=== PATIENT | female | born 1995 | race Caucasian/White ===

== ENCOUNTER 2017-08-22 05:32 | Emergency (ER) | payer OTHER ==
[2017-08-22 05:43] VITALS: BP 119/56; PULSE 75; TEMP 97.7; BMI 26.4
--- NOTE | 2017-08-22 05:57 | PDOC ---
History of Present Illness - General History Source: Patient Exam Limitations: No Limitations - History of Present Illness Initial Comments: 08/22/17 05:58 The patient is a 22 year old female with no significant PMH who presents to the emergency department with nausea and emesis x2 since 11PM yesterday. The patient states that she did not eat anything new. The patient denies sick contact. The patient denies chest pain, shortness of breath, headache and dizziness. Denies fever, chills, diarrhea and constipation. Denies dysuria, frequency, urgency and hematuria. Allergies: NKA Past surgical history: None reported Social history: No reported alcohol, cigarette, or drug use. <Hailey Garrison - Last Filed: 08/22/17 05:58> - General History Source: Patient <Hiram Mcguire - Last Filed: 08/22/17 06:55> - General Chief Complaint: Nausea/Vomiting Stated Complaint: VOMITING Time Seen by Provider: 08/22/17 05:49 Past History <Hailey Garrison - Last Filed: 08/22/17 05:58> - Past Medical History Asthma: Yes Cancer: No Cardiac Disorders: No Diabetes: No HTN: No Seizures: No Thyroid Disease: No - Surgical History Abdominal Surgery: No - Reproductive History (#): 3 Para: 1 Therapeutic (s) & number: Yes (elective) - Suicide/Smoking/Psychosocial Hx Smoking History: Never smoked Have you smoked in the past 12 months: No Number of Cigarettes Smoked Daily: 2 Information on smoking cessation initiated: No Hx Alcohol Use: No Drug/Substance Use Hx: No Substance Use Type: None Hx Substance Use Treatment: No <Hiram Mcguire - Last Filed: 08/22/17 06:55> - Past Medical History Allergies/Adverse Reactions: Allergies Allergy/AdvReac Type Severity Reaction Status Date / Time No Known Allergies Allergy Verified 08/22/17 05:41 Home Medications: Ambulatory Orders NK [No Known Home Medication] 10/23/15 Review of Systems - Review of Systems Able to Perform ROS?: Yes Comments:: 08/22/17 06:02 CONSTITUTIONAL: Absent: fever, no chills, no fatigue EYES: Absent: visual changes ENT: Absent: ear pain, no sore throat CARDIOVASCULAR: Absent: chest pain, no palpitations RESPIRATORY: Absent: cough, no SOB GI: Absent: abdominal pain, no constipation, no diarrhea Present: nausea and vomiting GENITOURINARY: Absent: dysuria, no frequency, no hematuria MUSKULOSKELETAL: Absent: back pain, no arthralgia, no myalgia SKIN: Absent: rash NEURO: Absent: headache <Hailey Garrison - Last Filed: 08/22/17 05:58> *Physical Exam - Vital Signs Last Vital Signs Temp Pulse Resp BP Pulse Ox 97.7 F 75 14 119/56 97 08/22/17 05:42 08/22/17 05:42 08/22/17 05:42 08/22/17 05:42 08/22/17 05:42 - Physical Exam Comments: 08/22/17 06:04 GENERAL: Well developed, well nourished. Awake and alert. No acute distress. HEENT: Normocephalic, atraumatic. PERRLA, EOMI. No conjunctival pallor. Sclera are non- icteric. Moist mucous membranes. Oropharynx is clear. NECK: Supple. Full ROM. No JVD. Carotid pulses 2+ and symmetric, without bruits. No thyromegaly. No lymphadenopathy. CARDIOVASCULAR: Regular rate and rhythm. No murmurs, rubs, or gallops. Distal pulses are 2+ and symmetric. PULMONARY: No evidence of respiratory distress. Lungs clear to auscultation bilaterally. No wheezing, rales or rhonchi. ABDOMINAL: Soft. Non-tender. Non-distended. No rebound or guarding. No organomegaly. Normoactive bowel sounds. MUSCULOSKELETAL Normal range of motion at all joints. No bony deformities or tenderness. No CVA tenderness. EXTREMITIES: No cyanosis. No clubbing. No edema. No calf tenderness. SKIN: Warm and dry. Normal capillary refill. No rashes. No jaundice. NEUROLOGICAL: Alert, awake, appropriate. Cranial nerves 2-12 intact. No deficits to light touch and temperature in face, upper extremities and lower extremities. No motor deficits in the in face, upper extremities and lower extremities. Normoreflexic in the upper and lower extremities. Normal speech. Toes are down- going bilaterally. Gait is normal without ataxia. PSYCHIATRIC: Cooperative. Good eye contact. Appropriate mood and affect. <Hailey Garrison - Last Filed: 08/22/17 05:58> - Vital Signs Last Vital Signs Temp Pulse Resp BP Pulse Ox 97.7 F 75 14 119/56 97 08/22/17 05:42 08/22/17 05:42 08/22/17 05:42 08/22/17 05:42 08/22/17 05:42 <Hiram Mcguire - Last Filed: 08/22/17 06:55> *DC/Admit/Observation/Transfer - Attestations Scribe Attestion: 08/22/17 06:06 Documentation prepared by Hailey Garrison, acting as medical consultant for Hiram Mcguire DO. <Hailey Garrison - Last Filed: 08/22/17 05:58> - Discharge Dispostion Admit: No <Hiram Mcguire - Last Filed: 08/22/17 06:55> Diagnosis at time of Disposition: Nausea - Discharge Dispostion Disposition: HOME Condition at time of disposition: Improved - Patient Instructions Printed Discharge Instructions: DI for Nausea -- Adult
[2017-08-22] MEDS ORDERED: ONDANSETRON *ODT* 4 MG TABLET SL ONE (06:02)
[2017-08-22 06:33] LABS: URINE APPEARANCE CLOUDY; URINE BILIRUBIN NEGATIVE (NEGATIVE); URINE BLOOD 1+ (NEGATIVE); URINE COLOR YELLOW; URINE GLUCOSE (UA) NEGATIVE (NEGATIVE); URINE KETONE NEGATIVE (NEGATIVE); URINE NITRITE NEGATIVE (NEGATIVE); URINE PROTEIN NEGATIVE (NEGATIVE); URINE UROBILINOGEN NEGATIVE mg/dL (0.2-1.0)
[2017-08-22 07:00] LABS: URINE MUCUS RARE; URINE RBC 5 /hpf (0-3); URINE WBC 15 /hpf (3-5)
[2017-08-22 12:17] LABS: URINE LEUK ESTERASE 2+ (NEGATIVE)
== END 2017-08-22 07:06 | disposition home or self-care (01) ==
LOC: JER 05:32
DX: R11.0 Nausea (principal); J45.909 Unspecified asthma, uncomplicated
CPT/HCPCS: 81003; 81015; 84703; 99282-25

== ENCOUNTER 2017-09-23 16:37 | Emergency (ER) | payer OTHER ==
[2017-09-23 16:58] VITALS: BP 117/55; PULSE 94; TEMP 98.6; BMI 26.4
[2017-09-23] MEDS ORDERED: DIPHTH,PERTUSS(ACELL),TET 0.5 ML DISP.SYRIN IM ONE (16:58)
--- NOTE | 2017-09-23 16:58 | PDOC ---
Rapid Medical Evaluation Time Seen by Provider: 09/23/17 16:56 Medical Evaluation: Allergies Allergy/AdvReac Type Severity Reaction Status Date / Time No Known Allergies Allergy Verified 09/23/17 16:56 09/23/17 16:57 I have performed a brief in-person evaluation of this patient. The patient presents with a chief complaint of: Abscess to R arm, no f/c. No pmhx Pertinent physical exam findings: 2x1 cm fluctuant mass w/ surrounding erythema to ulnar aspect of distal L arm I have ordered the following:nothing The patient will proceed to the ED for further evaluation.
--- NOTE | 2017-09-23 17:50 | PDOC ---
History of Present Illness - General Chief Complaint: Abscess Boil Stated Complaint: BITE Time Seen by Provider: 09/23/17 16:56 History Source: Patient Exam Limitations: No Limitations - History of Present Illness Initial Comments: 09/23/17 17:45 This is a 22-year-old female without significant past medical history of presents with abscess to her right forearm 3 days. Patient states started as a "bug bite" which is slowly progressed into a 5 x 6 cm erythema on the forearm. Patient denies any fevers, chills, shortness of breath, pain, streaking. Past History - Past Medical History Allergies/Adverse Reactions: Allergies Allergy/AdvReac Type Severity Reaction Status Date / Time No Known Allergies Allergy Verified 09/23/17 16:56 Home Medications: Ambulatory Orders Cephalexin Monohydrate [Keflex -] 500 mg PO BID #20 capsule 09/23/17 Asthma: Yes Cancer: No Cardiac Disorders: No COPD: No Diabetes: No HTN: No Seizures: No Thyroid Disease: No - Surgical History Abdominal Surgery: No - Reproductive History (#): 3 Para: 1 Therapeutic (s) & number: Yes (elective) - Suicide/Smoking/Psychosocial Hx Smoking History: Never smoked Have you smoked in the past 12 months: No Number of Cigarettes Smoked Daily: 2 Information on smoking cessation initiated: No Hx Alcohol Use: No Drug/Substance Use Hx: No Substance Use Type: None Hx Substance Use Treatment: No Review of Systems - Review of Systems Able to Perform ROS?: Yes Is the patient limited Bots[place]an proficient: No Constitutional: No: Symptoms Reported HEENTM: No: Symptoms Reported Respiratory: No: Symptoms reported Cardiac (ROS): No: Symptoms Reported ABD/GI: No: Symptoms Reported : No: Symptoms Reported Musculoskeletal: Yes: See HPI Integumentary: Yes: See HPI Neurological: No: Symptoms reported Endocrine: No: Symptoms Reported Hematologic/Lymphatic: No: Symptoms Reported *Physical Exam - Vital Signs Last Vital Signs Temp Pulse Resp BP Pulse Ox 98.6 F 94 H 18 117/55 100 09/23/17 16:57 09/23/17 16:57 09/23/17 16:57 09/23/17 16:57 09/23/17 16:57 - Physical Exam General Appearance: Yes: Appropriately Dressed. No: Apparent Distress HEENT: positive: Normal ENT Inspection Neck: positive: Trachea midline, Supple Respiratory/Chest: positive: Lungs Clear, Normal Breath Sounds. negative: Respiratory Distress Cardiovascular: positive: Regular Rhythm, Regular Rate Gastrointestinal/Abdominal: positive: Normal Bowel Sounds, Soft. negative: Tender Musculoskeletal: positive: Normal Inspection. negative: CVA Tenderness Extremity: positive: Other (5x6cm area of erythema present to ulnar aspect of right forearm. 3cm fluctuatnt area noted in the center. No drainage present.) Integumentary: positive: Other (5x6cm area of erythema present to ulnar aspect of right forearm. 3cm fluctuatnt area noted in the center. No drainage present.) Neurologic: positive: Fully Oriented, Alert, Normal Response, Motor Strength 5/5 Procedures - Consent Consent obtained: Verbal, From Patient - Incision and Drainage I&D Site: Right: Arm Betadine cleansed: Yes Anesthesia: 1% Lidocaine Volume(ml): 4 Blade Size: 11 Attempts: 1 Iodinated Packin/ in Plain Packing: No Complications: none Dressing: Yes (dry sterile) Progress: 09/23/17 18:07 Patient tolerated procedure well Medical Decision Making - Medical Decision Making 09/23/17 17:47 A/P: This is a 22-year-old female without significant past medical history of presents with abscess to her right forearm 3 days. Patient states started as a "bug bite" which is slowly progressed into a 5 x 6 cm erythema on the forearm. Patient denies any fevers, chills, shortness of breath, pain, streaking. 5 x 6 area of erythema noted to the ulnar aspect of the right forearm. There is a 3 cm circular area of fluctuance noted in the middle. The lesion itself is not draining. No streaking is present on forearm. Patient is able to flex and extend the wrist without difficulty. Diagnosis: Abscess I'll perform an I&D. Please see's procedure note for details. 09/23/17 18:07 Given area of cellulitis much larger than area of loculation, I will treat patient with antibiotics. *DC/Admit/Observation/Transfer Diagnosis at time of Disposition: Abscess - Discharge Dispostion Disposition: HOME Condition at time of disposition: Stable Admit: No - Prescriptions Prescriptions: Cephalexin Monohydrate [Keflex -] 500 mg PO BID #20 capsule - Referrals Referrals: Luiz Yeager [Primary Care Provider] - - Patient Instructions Printed Discharge Instructions: DI for Incision and Drainage of a Skin Abscess Additional Instructions: Take Keflex 500 mg twice a day for the next 10 days. Return to emergency department or your primary doctor in 2 days for reevaluation of the wound. Take Tylenol or Motrin as needed for pain. Follow manufacturers instructions for appropriate dosage. Return to emergency department for worsening pain, fevers, streaking up the arm , or any other concerns. Thank you very much for choosing us to provide your emergent healthcare needs. - Post Discharge Activity
[2017-09-23] MEDS ORDERED: IBUPROFEN 400 MG TABLET (FP) PO ONE ×2 (18:11)
--- NOTE | 2017-09-25 07:45 | PDOC ---
Patient Follow-up (Call Back) - Post ED Follow - Up Condition at time of discharge: Stable Disposition at time of original discharge: HOME Reason for Call Back: Abnwl. Microbiology (Culture Gram stain showed many gram- positive cocci in clusters. Patient was discharged home with Keflex. No further interventions presently wound culture pending.)
--- NOTE | 2017-09-26 07:48 | PDOC ---
Patient Follow-up (Call Back) - Post ED Follow - Up Condition at time of discharge: Stable Disposition at time of original discharge: HOME Reason for Call Back: Abnwl. Microbiology (Wound culture preliminary report shows presumptive MRSA. Patient was initially placed on Keflex which will not be adequate treatment for the above. Called the patient at the home number and grandmother states patient does not live there and does not know how to contact her. I've called the number listed for the mother and left a message. Message also left at the uncles number.)
== END 2017-09-23 18:40 | disposition home or self-care (01) ==
LOC: JERFT 16:37
PROC: 0J9G0ZZ Drainage of Right Lower Arm Subcutaneous Tissue and Fascia, Open Approach (ICD-10-PCS; principal; 2017-09-23)
DX: S50.861A Insect bite (nonvenomous) of right forearm, initial encounter (principal); L03.113 Cellulitis of right upper limb; W57.XXXA Bitten or stung by nonvenomous insect and other nonvenomous arthropods, initial encounter; Y93.89 Activity, other specified; Y92.89 Other specified places as the place of occurrence of the external cause; Y99.8 Other external cause status
CPT/HCPCS: 10160; 87070; 87186; 87205; 99282-25

== ENCOUNTER 2017-09-26 20:33 | Emergency (ER) | payer OTHER ==
--- NOTE | 2017-09-26 20:43 | PDOC ---
Rapid Medical Evaluation Time Seen by Provider: 09/26/17 20:42 Medical Evaluation: Allergies Allergy/AdvReac Type Severity Reaction Status Date / Time No Known Allergies Allergy Verified 09/26/17 20:42 09/26/17 20:42 I have performed a brief in -person evaluation of this patient. The patient presents with a chief complaint of: wound check after I&D right wrist Pt was prescribed Keflex which she did NOT take nor did she refill the mediation. Pertinent physical exam findings: afebrile I have ordered the followin The patient will proceed to the ED for further evaluation.
[2017-09-26 20:44] VITALS: BP 121/71; PULSE 93; TEMP 99; BMI 26.4
--- NOTE | 2017-09-26 20:54 | PDOC ---
History of Present Illness - General Chief Complaint: Revisit,Wound Recheck Stated Complaint: ER REVIST Time Seen by Provider: 09/26/17 20:42 History Source: Patient Exam Limitations: No Limitations - History of Present Illness Initial Comments: 09/26/17 21:30 22-year-old female with no medical history presents to the emergency department for wound check from an I&D of the right anterior ulnar aspect which she first noticed a small pimple-like raised to her wrist has increased in size. Patient had an I&D 3 days ago. Patient was discharged with Keflex states she did not pickle pumper her medication because she felt she didn't need it. Patient denies fever , chills, nausea/vomiting, extremity numbness or tingling sensation. Patient states she doesn't believe the infection is getting any better after is still copious discharge but deny any lymphangitis. Timing/Duration: reports: other (x3d ago) Past History - Past Medical History Allergies/Adverse Reactions: Allergies Allergy/AdvReac Type Severity Reaction Status Date / Time No Known Allergies Allergy Verified 09/26/17 20:42 Home Medications: Ambulatory Orders Cephalexin Monohydrate [Keflex -] 500 mg PO BID #20 capsule 09/23/17 Asthma: Yes Cancer: No Cardiac Disorders: No COPD: No Diabetes: No HTN: No Seizures: No Thyroid Disease: No - Surgical History Abdominal Surgery: No - Reproductive History (#): 3 Para: 1 Therapeutic (s) & number: Yes (elective) - Suicide/Smoking/Psychosocial Hx Smoking History: Never smoked Have you smoked in the past 12 months: No Number of Cigarettes Smoked Daily: 2 Hx Alcohol Use: No Drug/Substance Use Hx: No Substance Use Type: None Hx Substance Use Treatment: No Review of Systems - Review of Systems Able to Perform ROS?: Yes Comments:: 09/26/17 21:31 CONSTITUTIONAL: Absent: fever, chills, diaphoresis, generalized weakness, malaise, loss of appetite MUSCULOSKELETAL: Absent: myalgia, arthralgia, joint swelling SKIN: Right ant ulnar wrist/copious purulent draining Absent: rash, itching, pallor HEMATOLOGIC/IMMUNOLOGIC: Absent: easy bleeding, easy bruising, lymphadenopathy, frequent infections ENDOCRINE: Absent: unexplained weight gain, unexplained weight loss, heat intolerance, cold intolerance Is the patient limited Lao proficient: No *Physical Exam - Vital Signs Last Vital Signs Temp Pulse Resp BP Pulse Ox 99 F 93 H 18 121/71 99 09/26/17 20:42 09/26/17 20:42 09/26/17 20:42 09/26/17 20:42 09/26/17 20:42 - Physical Exam Comments: 09/26/17 21:31 GENERAL: Well developed, well nourished. Awake and alert. No acute distress. MUSCULOSKELETAL Normal range of motion at all joints. No bony deformities or tenderness. No CVA tenderness. EXTREMITIES: No cyanosis. No clubbing. No edema. No calf tenderness. SKIN: Warm and dry. Normal capillary refill. No rashes. No jaundice. Right ant ulnar wrist +copious purulent, malodorous drainage neg lymphangitis 2+radial pulse Progress Note - Progress Note Progress Note: Procedure: Right anterior ulnar/removed iodoform packing Copious irrigation with normal saline Repacked with 1/4" iodoform packing Telfa Gauze Kerlix wrap Patient was loud, belligerent and using profanity. Patient Leaving the hospital and returning. I've advised the patient to stay in the waiting room to get called to be seen but the patient keeps on leaving out of the hospital. Patient continued to be loud and belligerent in the exam room and continued to do so in the common waiting room. Patient asked to stop using profanity in front of children in the waiting room, patient persists and was screaming and yelling at the top of her lungs. Patient has been highly uncooperative this evening. Medical Decision Making - Medical Decision Making 09/27/17 02:45 This is a 22-year-old female without any medical history who presents for a wound check to the right anterior ulnar aspect of her wrists in which she had an I&D 3 days ago. Patient was prescribed Keflex which she did not pickle pumper from the pharmacy. Wound culture came back as MRSA. Patient was given clindamycin IV while in the emergency department. Packing removed. Due to copious amount of purulent discharge, she was repacked with quarter inch iodoform packing. Patient was informed to come back to the emergency department in 2 days for another wound check. *DC/Admit/Observation/Transfer Diagnosis at time of Disposition: Abscess, Wound check, abscess - Discharge Dispostion Disposition: ELOPED Condition at time of disposition: Stable Admit: No - Referrals Referrals: Whit Taylor MD [Non Staff, Medical] - - Patient Instructions Printed Discharge Instructions: DI for Wound Infection Additional Instructions: WOUND CHECK in 2 days SINCE YOU DID NOT TAKE YOUR ANTIBIOTICS. PER OUR CONVERSATION, THE INFECTION CAN GET WORSE. IT IS STRONGLY ADVISED THAT YOU TAKE THE CLINDAMYCIN Return to the ER for severe/persistent/worsening symptoms, red streaks - Post Discharge Activity
[2017-09-26] MEDS ORDERED: CLINDAMYCIN 600MG PREMIX IVPB 600 MG/50 ML BAG IVPB ONE (20:56)
== END 2017-09-27 02:25 | disposition left against medical advice (07) ==
LOC: JERFT 20:33
DX: Z48.01 Encounter for change or removal of surgical wound dressing (principal)
CPT/HCPCS: 96365; 99281-25

== ENCOUNTER 2017-09-30 00:08 | Emergency (ER) | payer OTHER ==
[2017-09-30 00:14] VITALS: BP 126/80; PULSE 100; TEMP 98.3; BMI 24.5
[2017-09-30] MEDS ORDERED: SULFAMETHOXAZOLE/TRIMETHOPRIM 800MG/160MG D.S. TABLET PO ONE (00:20)
--- NOTE | 2017-09-30 00:20 | PDOC ---
History of Present Illness - General Chief Complaint: Wound Stated Complaint: ABCESS TO RIGHT WRIST Time Seen by Provider: 09/30/17 00:16 History Source: Patient Exam Limitations: No Limitations - History of Present Illness Initial Comments: 09/30/17 00:22 This is a 22-year-old female who comes in for removal of packing from a wrist abscess that was incised is sized and drained patient is on Keflex at this time. Patient said wrist abscess is getting better she denies any other complaints. She denies any fevers or chills. PAST MEDICAL HISTORY: no significant history PAST SURGICAL HISTORY: no significant history FAMILY HISTORY: no pertinant history SOCIAL HISTORY: Pt lives with family and is employed. MEDICATIONS: reviewed ALLERGIES: As per nursing notes Review of Systems General: No fevers or chills, no weakness, no weight loss HEENT: No change in vision. No sore throat,. No ear pain CardioVascular: No chest pain or shortness of breath Respiratory:No cough, or wheezing. Gastrointestinal: no nausea, vomitting, diarrhea or constipation, No rectal bleeding Genitourinary: No dysuria, hematuria, or frequency Musculoskeletal: No joint or muscle pain or swelling Neurologic: No headache, vertigo, dizziness or loss of consciousness Psychiatric: nor depression Skin: No rashes or easy bruising Endocrine: no increased thirst or abnormal weight change Allergic: no skin or latex allergy All other systems reviewed and normal GENERAL: The patient is awake, alert, and fully oriented, in no acute distress. HEAD: Normal with no signs of trauma. EYES: Pupils equal, round and reactive to light, extraocular movements intact, sclera anicteric, conjunctiva clear. EXTREMITIES: Right wrist area there is a area of erythema with a cavity that has packing in it. There is no purulence from the cavity at this time. NEUROLOGICAL: Normal speech, normal gait. grossly intact PSYCH: Normal mood, normal affect. SKIN: Warm, Dry, normal turgor, no rashes or lesions noted. Procedure note packing was removed bacitracin was placed over the wound and a dressing was placed over that. Patient is on Keflex however this does not give her very good MRSA coverage so I switched her to Bactrim for better MRSA coverage as there is still some infection within the tissues Patient discharged told to start hot soaks and follow-up with the orthopedist if not improved Past History - Past Medical History Allergies/Adverse Reactions: Allergies Allergy/AdvReac Type Severity Reaction Status Date / Time No Known Allergies Allergy Verified 09/30/17 00:10 Home Medications: Ambulatory Orders Cephalexin Monohydrate [Keflex -] 500 mg PO BID #20 capsule 09/23/17 Asthma: Yes Cancer: No Cardiac Disorders: No COPD: No Diabetes: No HTN: No Seizures: No Thyroid Disease: No - Surgical History Abdominal Surgery: No - Reproductive History (#): 3 Para: 1 Therapeutic (s) & number: Yes (elective) - Immunization History Td Vaccination: Yes - Suicide/Smoking/Psychosocial Hx Smoking History: Never smoked Have you smoked in the past 12 months: No Number of Cigarettes Smoked Daily: 2 Information on smoking cessation initiated: No Hx Alcohol Use: No Drug/Substance Use Hx: No Substance Use Type: None Hx Substance Use Treatment: No *Physical Exam - Vital Signs Last Vital Signs Temp Pulse Resp BP Pulse Ox 98.3 F 100 H 16 126/80 99 09/30/17 00:11 09/30/17 00:11 09/30/17 00:11 09/30/17 00:11 09/30/17 00:11 *DC/Admit/Observation/Transfer Diagnosis at time of Disposition: Abscess of forearm, right, Wound check, abscess - Discharge Dispostion Disposition: HOME Condition at time of disposition: Stable Admit: No - Referrals - Patient Instructions Additional Instructions: I'm switching her antibiotics to Bactrim take one tablet twice a day for the next 7 days. Do hot soaks to the area 4 times a day until no longer red and healed. Place bacitracin over the wound and cover with a dressing until a scab has formed and there is no drainage. Follow-up with the orthopedist call [phone] for an appointment Return to the emergency department immediately with ANY new, persistent or worsening symptoms. Continue any medications as previously prescribed by your physician. You should follow up with your primary doctor as soon as possible regarding today's emergency department visit. . Please make sure your doctor reviews the results of your emergency evaluation. Thank you for coming to the Emergency Department today for your care. It was a pleasure to see you today. Please note that your evaluation is INCOMPLETE until you follow-up with your doctor. - Post Discharge Activity
[2017-09-30] MEDS ORDERED: SULFAMETHOXAZOLE/TRIMETHOPRIM 800MG/160MG D.S. TABLET ONE (00:21)
== END 2017-09-30 00:28 | disposition home or self-care (01) ==
LOC: FER 00:08
DX: L02.413 Cutaneous abscess of right upper limb (principal); J45.909 Unspecified asthma, uncomplicated
CPT/HCPCS: 99281-25

== ENCOUNTER 2017-10-29 18:32 | Emergency (ER) | payer OTHER ==
--- NOTE | 2017-10-29 18:41 | PDOC ---
Rapid Medical Evaluation Chief Complaint: Cold Symptoms Time Seen by Provider: 10/29/17 18:39 Medical Evaluation: Allergies Allergy/AdvReac Type Severity Reaction Status Date / Time No Known Allergies Allergy Verified 09/30/17 00:10 10/29/17 18:39 I have performed a brief in-person evaluation of this patient. The patient presents with a chief complaint of: body aches, cough since this morning, no meds taken Pertinent physical exam findings: lungs ctab I have ordered the following: flu swab The patient will proceed to the ED for further evaluation.
[2017-10-29 18:42] VITALS: BP 102/55; BMI 26.4
[2017-10-29 20:58] VITALS: TEMP 98.4
[2017-10-29 21:07] VITALS: PULSE 102
[2017-10-29] MEDS ORDERED: ACETAMINOPHEN 500 MG TABLET (FP) PO ONE (21:15)
[2017-10-29] MEDS ORDERED: ACETAMINOPHEN 500 MG TABLET (FP) ONE (21:16)
--- NOTE | 2017-10-29 21:21 | PDOC ---
History of Present Illness - General Chief Complaint: Cold Symptoms Stated Complaint: COLD SYMPTOMS Time Seen by Provider: 10/29/17 18:39 History Source: Patient Exam Limitations: No Limitations - History of Present Illness Initial Comments: 10/29/17 21:20 Patient came for evaluation of fevers, chills, body aches, moist nonproductive cough, since yesterday evening. Timing/Duration: reports: constant, getting worse Severity: reports: moderate Associated Symptoms: reports: chest pain/soreness, cough, dizziness, facial pain , fever/chills, headache, nasal drainage, sore throat Past History - Travel Traveled outside of the country in the last 30 days: No Close contact w/someone who was outside of country & ill: No - Past Medical History Allergies/Adverse Reactions: Allergies Allergy/AdvReac Type Severity Reaction Status Date / Time No Known Allergies Allergy Verified 10/29/17 18:41 Home Medications: Ambulatory Orders Ibuprofen 400 mg PO Q6H PRN #30 tablet 10/29/17 Oseltamivir Phosphate [Tamiflu -] 75 mg PO BID #10 capsule 10/29/17 Asthma: Yes Cancer: No Cardiac Disorders: No COPD: No Diabetes: No HTN: No Seizures: No Thyroid Disease: No - Surgical History Abdominal Surgery: No - Reproductive History (#): 3 Para: 1 Therapeutic (s) & number: Yes (elective) - Immunization History Td Vaccination: Yes - Suicide/Smoking/Psychosocial Hx Smoking History: Never smoked Have you smoked in the past 12 months: No Number of Cigarettes Smoked Daily: 2 Information on smoking cessation initiated: No Hx Alcohol Use: No Drug/Substance Use Hx: No Substance Use Type: None Hx Substance Use Treatment: No Review of Systems - Review of Systems Able to Perform ROS?: Yes Is the patient limited Mauritanian proficient: Yes Constitutional: Yes: Symptoms Reported, See HPI, Chills, Fever, Malaise, Night Sweats, Weakness HEENTM: Yes: Symptoms Reported, Nose Congestion, Throat Pain Respiratory: Yes: Symptoms reported, See HPI, Cough (nonproductive) ABD/GI: Yes: Symptoms Reported, Nausea. No: Vomiting All Other Systems: Reviewed and Negative *Physical Exam - Vital Signs Last Vital Signs Temp Pulse Resp BP Pulse Ox 98.4 F 102 H 18 102/55 97 10/29/17 20:57 10/29/17 21:06 10/29/17 18:40 10/29/17 18:40 10/29/17 18:40 - Physical Exam General Appearance: Yes: Nourished, Appropriately Dressed, Apparent Distress, Mild Distress HEENT: positive: MONAE, TMs Normal (congested but landmarks easily visualized), Pharyngeal Erythema, Nasal Congestion, Rhinorrhea. negative: Normal ENT Inspection, Pharynx Normal Respiratory/Chest: positive: Lungs Clear, Normal Breath Sounds. negative: Wheezing Cardiovascular: positive: Regular Rate Gastrointestinal/Abdominal: positive: Soft. 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 We'll treat with Tamiflu *DC/Admit/Observation/Transfer Diagnosis at time of Disposition: Influenzal acute upper respiratory infection - Discharge Dispostion Disposition: HOME Condition at time of disposition: Stable Admit: No - Prescriptions Prescriptions: Ibuprofen 400 mg PO Q6H PRN #30 tablet PRN Reason: Pain Oseltamivir Phosphate [Tamiflu -] 75 mg PO BID #10 capsule - Referrals Referrals: uLiz Yeager [Primary Care Provider] - - Patient Instructions Printed Discharge Instructions: DI for Influenza -- Adult Additional Instructions: Rest, drink lots of fluids: Teas, water, soups, Pedialyte Saltwater gargles Steamy showers/seem to face break up mucus Old-fashioned treatments help! Avoid contact with others until fevers and cough resolved as this is very contagious Lots of handwashing and good hygiene Continue [id number] medications for symptomatic relief Tylenol or Motrin for fever and pain Take all of Tamiflu as directed: 1 tab every 12 hours for 5 days Followup with private physician in one to 2 days as needed or if worsening Return to emergency department for worsened symptoms, fevers, dehydration Influenza takes between 5 and 7 days for resolution To not participate in any activity, work, or school until fevers and cough are gone for at least one day - Post Discharge Activity Forms/Work/School Notes: Back to Work
== END 2017-10-29 21:35 | disposition home or self-care (01) ==
LOC: JERFT 18:32
DX: J11.1 Influenza due to unidentified influenza virus with other respiratory manifestations (principal)
CPT/HCPCS: 84703; 99281-25

== ENCOUNTER 2018-08-22 02:52 | Emergency (ER) | payer OTHER ==
[2018-08-22 03:11] VITALS: TEMP 98.6; BMI 28.3
[2018-08-22] MEDS ORDERED: DIPHTH,PERTUSS(ACELL),TET 0.5 ML DISP.SYRIN IM ONE ×2 (03:31→03:55)
[2018-08-22] MEDS ORDERED: LIDOCAINE 1%/EPI 1:100000 (20 ML MULTI DOSE VIAL) INF ONE (03:31)
[2018-08-22] MEDS ORDERED: LIDOCAINE 1%/EPI 1:100000 (20 ML MULTI DOSE VIAL) ONE (03:55)
--- NOTE | 2018-08-22 03:59 | PDOC ---
History of Present Illness <Zaida Florian - Last Filed: 08/22/18 08:18> - General History Source: Patient Exam Limitations: No Limitations - History of Present Illness Initial Comments: 23 y/o F with no sig pmh presents as states she had some alcohol (3 cups of whiskey and juice) and around 2 hours ago, she fell back, hit the back of head against radiator. Denies LOC. Mentions she does not drink alcohol daily and only socially on weekends. Denies headache, neck pain, fever, sob, cp, dizziness , abd pain, n/v. Patient unsure of her last tetanus. 08/22/18 04:54 <Jazmin Marsh - Last Filed: 08/22/18 08:48> - General Chief Complaint: Injury Stated Complaint: INJURY Time Seen by Provider: 08/22/18 03:23 Past History <Zaida Florian - Last Filed: 08/22/18 08:18> - Past Medical History Asthma: Yes Cancer: No Cardiac Disorders: No COPD: No Diabetes: No HTN: No Seizures: No Thyroid Disease: No - Surgical History Abdominal Surgery: No - Reproductive History (#): 3 Para: 1 Therapeutic (s) & number: Yes (elective) - Immunization History Td Vaccination: Yes Immunization Up to Date: Yes - Suicide/Smoking/Psychosocial Hx Smoking History: Never smoked Have you smoked in the past 12 months: No Number of Cigarettes Smoked Daily: 2 Information on smoking cessation initiated: No Hx Alcohol Use: Yes Drug/Substance Use Hx: No Substance Use Type: Alcohol Hx Substance Use Treatment: No <Jazmin Marsh - Last Filed: 08/22/18 08:48> - Past Medical History Allergies/Adverse Reactions: Allergies Allergy/AdvReac Type Severity Reaction Status Date / Time No Known Allergies Allergy Verified 08/22/18 03:10 Home Medications: Ambulatory Orders Ibuprofen 400 mg PO Q6H PRN #30 tablet 10/29/17 Review of Systems - Review of Systems Comments:: see HPI 08/22/18 04:55 <Jazmin Marsh - Last Filed: 08/22/18 08:48> *Physical Exam - Vital Signs Last Vital Signs Temp Pulse Resp BP Pulse Ox 98.6 F 98 H 16 130/87 96 08/22/18 02:58 08/22/18 02:58 08/22/18 02:58 08/22/18 02:58 08/22/18 02:58 <Zaida Florian - Last Filed: 08/22/18 08:18> - Vital Signs Last Vital Signs Temp Pulse Resp BP Pulse Ox 98.6 F 98 H 16 130/87 96 08/22/18 02:58 08/22/18 02:58 08/22/18 02:58 08/22/18 02:58 08/22/18 02:58 - Physical Exam General Appearance: Yes: Alcohol on Breath. No: Apparent Distress, Disheveled HEENT: positive: MONAE, Other (around 5 cm scalp laceration to the left parietal region of head) Neck: positive: Supple. negative: Rigid, Decreased range of motion, Rigidity, Tender midline Respiratory/Chest: positive: Lungs Clear, Normal Breath Sounds. negative: Respiratory Distress Cardiovascular: positive: Regular Rhythm, Regular Rate, S1, S2. 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 NML intact, Fully Oriented, Alert, Normal Mood/ Affect <Jazmin Marsh - Last Filed: 08/22/18 08:48> Moderate Sedation - Procedure Monitoring Vital Signs: Procedure Monitoring Vital Signs Temperature 98.6 F 08/22/18 02:58 Pulse Rate 98 H 08/22/18 02:58 Respiratory Rate 16 08/22/18 02:58 Blood Pressure 130/87 08/22/18 02:58 O2 Sat by Pulse Oximetry (%) 96 08/22/18 02:58 <Zaida Florian - Last Filed: 08/22/18 08:18> - Procedure Monitoring Vital Signs: Procedure Monitoring Vital Signs Temperature 98.6 F 08/22/18 02:58 Pulse Rate 98 H 08/22/18 02:58 Respiratory Rate 16 08/22/18 02:58 Blood Pressure 130/87 08/22/18 02:58 O2 Sat by Pulse Oximetry (%) 96 08/22/18 02:58 <Jazmin Marsh - Last Filed: 08/22/18 08:48> Procedures - Laceration/Wound Repair Head Wound Length: 2.6 to 5.0 cm Wound Explored: clean, no foreign body present Wound's Depth, Shape: superficial Irrigated w/ Saline: Yes Betadine Prep: No Anesthesia: 1% Lidocaine w/ Epi Wound Debrided: moderate Wound Repaired With: Gerton (3 christopher placed) <Jazmin Marsh - Last Filed: 08/22/18 08:48> ED Treatment Course - ADDITIONAL ORDERS Additional order review: Laboratory Results 08/22/18 08/22/18 05:31 05:18 Urine HCG, Qual Negative Alcohol, Quantitative 39.3 H - Medications Given in the ED: ED Medications Discontinued Medications Generic Name Dose Route Start Last Admin Trade Name Caro PRN Reason Stop Dose Admin Acetaminophen 650 mg 08/22/18 04:50 08/22/18 05:16 Tylenol - PO 08/22/18 04:51 650 mg ONCE ONE Administration Diphtheria/Tetanus/Acell Pertussis 0.5 ml 08/22/18 03:31 08/22/18 03:58 Boostrix - IM 08/22/18 03:32 0.5 ml .ONCE ONE Administration Lidocaine/Epinephrine 3 ml 08/22/18 03:31 08/22/18 03:58 Xylocaine 1%-Epi 1:100,000 INF 08/22/18 03:32 3 ml ONCE ONE Administration <Zaida Florian - Last Filed: 08/22/18 08:18> Medical Decision Making - Medical Decision Making 23 y/o F presents with scalp laceration s/p fall after drinking alcohol. Laceration repaired with 3 christopher. Tdap updated Patient clinically appears sober Case d/w Dr. Floyd Will check alcohol level and get test Will also get CT head and CT cervical spine given fall after alcohol intoxication. Patient placed in C-collar 08/22/18 04:58 Patient alcohol level [address] imaging Will sign out to incoming YAMILET pending CT results 08/22/18 06:35 <Jazmin Marsh - Last Filed: 08/22/18 08:48> *DC/Admit/Observation/Transfer <Zaida Florian - Last Filed: 08/22/18 08:18> - Discharge Dispostion Decision to Admit order: No <Jazmin Marsh - Last Filed: 08/22/18 08:48> Diagnosis at time of Disposition: Scalp laceration Qualifiers: Encounter type: initial encounter Qualified Code(s): S01.01XA - Laceration without foreign body of scalp, initial encounter Alcohol intoxication Qualifiers: Complication of substance-induced condition: uncomplicated Qualified Code(s): F10.920 - Alcohol use, unspecified with intoxication, uncomplicated - Discharge Dispostion Disposition: HOME Condition at time of disposition: Good - Patient Instructions Printed Discharge Instructions: DI for Laceration Repair -- Gerton, DI for Laceration Repair of the Scalp, DI for Closed Head Injury Additional Instructions: Thank you for choosing [facility]. It was a pleasure taking care of you. You were seen here for scalp laceration. Please have your christopher removed in 7 days. Refrain from drinking heavy amounts of alcohol. Return to the Emergency Department if your symptoms worsen or persist, you have fever, heavy bleeding from site, pustular discharge, severe headache, vomiting or other concerning symptoms.
[2018-08-22] MEDS ORDERED: ACETAMINOPHEN 325 MG TABLET (FP) PO ONE (04:50)
[2018-08-22 08:20] VITALS: BP 103/55; PULSE 99
== END 2018-08-22 08:24 | disposition home or self-care (01) ==
LOC: JER 02:52
PROC: 0HQ0XZZ Repair Scalp Skin, External Approach (ICD-10-PCS; principal; 2018-08-22)
PROC: 3E0234Z Introduction of Serum, Toxoid and Vaccine into Muscle, Percutaneous Approach (ICD-10-PCS; 2018-08-22)
DX: S01.01XA Laceration without foreign body of scalp, initial encounter (principal); W01.198A Fall on same level from slipping, tripping and stumbling with subsequent striking against other object, initial encounter; Y93.89 Activity, other specified; Y92.89 Other specified places as the place of occurrence of the external cause; Y99.8 Other external cause status
CPT/HCPCS: 12002; 36415; 70450-TC; 72125-TC; 80307; 84703; 90471; 90715; 99282-25

== ENCOUNTER 2019-05-27 16:04 | Emergency (ER) | payer OTHER ==
--- NOTE | 2019-05-27 16:08 | PDOC ---
Rapid Medical Evaluation Medical Evaluation: Allergies Allergy/AdvReac Type Severity Reaction Status Date / Time No Known Allergies Allergy Verified 08/22/18 03:10 05/27/19 16:06 I have performed a brief in-person evaluation of this patient. The patient presents with a chief complaint of: with LMP "2 months ago" with abd cramping and vomiting Pertinent physical exam findings: deferred I have ordered the following: w/u The patient will proceed to the ED for further evaluation. Discharge Disposition - Diagnosis - Referrals - Patient Instructions - Post Discharge Activity
[2019-05-27 16:09] VITALS: BP 110/51; PULSE 81; TEMP 98.1; BMI 31.1
[2019-05-27] MEDS ORDERED: SODIUM CHLORIDE 1,000 ML IV STA ×2 (16:09→17:59)
[2019-05-27 17:21] LABS: BASO % 0.2 % (0-2.0); EOS % 2.7 % (0-4.5); HEMATOCRIT 41.5 % (32.4-45.2); HEMOGLOBIN 13.8 GM/dL (10.7-15.3); LYMPH % 26.5 % (8-40); MCH 29.7 pg (25.7-33.7); MCHC 33.3 g/dl (32.0-36.0); MEAN CELL VOLUME 89.2 fl (80-96); MEAN PLT VOLUME 8.9 fl (7.5-11.1); MONO % 10.5 % (3.8-10.2); NEUT % 60.1 % (42.8-82.8); PLATELET COUNT 240 K/MM3 (134-434); RBC 4.65 M/mm3 (3.60-5.2); RDW 13.5 % (11.6-15.6); WHITE BLOOD COUNT 8.7 K/mm3 (4.0-10.0)
[2019-05-27 17:40] LABS: ALBUMIN 3.7 g/dl (3.4-5.0); BILIRUBIN,TOTAL 0.4 mg/dL (0.2-1); BLOOD UREA NITROGEN 8.2 mg/dL (7-18); CALCIUM 9.1 mg/dL (8.5-10.1); CREATININE 0.6 mg/dL (0.55-1.3); POTASSIUM 3.7 mmol/L (3.5-5.1)
[2019-05-27] MEDS ORDERED: ACETAMINOPHEN 1000 MG/100 ML VIAL (NON FORMULARY) IVPB ONE (17:59)
[2019-05-27] MEDS ORDERED: METOCLOPRAMIDE HCL INJECTION 10 MG/2 ML VIAL IVPB ONE (17:59)
[2019-05-27 18:24] LABS: PH,URINE 5.5 (5.0-8.0); URINE APPEARANCE CLEAR; URINE BILIRUBIN NEGATIVE (NEGATIVE); URINE COLOR YELLOW; URINE GLUCOSE (UA) NEGATIVE (NEGATIVE); URINE KETONE NEGATIVE (NEGATIVE); URINE LEUK ESTERASE NEGATIVE (NEGATIVE); URINE NITRITE NEGATIVE (NEGATIVE); URINE PROTEIN NEGATIVE (NEGATIVE)
--- NOTE | 2019-05-27 19:35 | PDOC ---
History of Present Illness - General Chief Complaint: Nausea/Vomiting Stated Complaint: (UNKNOWN WKS)WEAKNESS Time Seen by Provider: 05/27/19 17:14 History Source: Patient Exam Limitations: No Limitations Past History - Travel Traveled outside of the country in the last 30 days: No Close contact w/someone who was outside of country & ill: No - Past Medical History Allergies/Adverse Reactions: Allergies Allergy/AdvReac Type Severity Reaction Status Date / Time No Known Allergies Allergy Verified 05/27/19 16:09 Home Medications: Ambulatory Orders Ibuprofen 400 mg PO Q6H PRN #30 tablet 10/29/17 Asthma: Yes Cancer: No Cardiac Disorders: No COPD: No Diabetes: No HTN: No Seizures: No Thyroid Disease: No - Surgical History Abdominal Surgery: No - Reproductive History Is Patient Now?: Yes (#): 3 Para: 1 Therapeutic (s) & number: Yes (elective) - Immunization History Td Vaccination: Yes Immunization Up to Date: Yes - Suicide/Smoking/Psychosocial Hx Smoking History: Never smoked Have you smoked in the past 12 months: No Number of Cigarettes Smoked Daily: 2 Information on smoking cessation initiated: No Hx Alcohol Use: No Drug/Substance Use Hx: No Substance Use Type: Alcohol Hx Substance Use Treatment: No Review of Systems - Review of Systems Able to Perform ROS?: Yes Comments:: 05/27/19 19:31 CONSTITUTIONAL: Absent: fever, chills, diaphoresis, generalized weakness, malaise, loss of appetite HEENT: Absent: rhinorrhea, nasal congestion, throat pain, throat swelling, difficulty swallowing, mouth swelling, ear pain, eye pain, visual Changes CARDIOVASCULAR: Absent: chest pain, loss of consciousness, palpitations, irregular heart rate, peripheral edema RESPIRATORY: Absent: cough, shortness of breath, dyspnea with exertion, orthopnea, wheezing, stridor, hemoptysis GASTROINTESTINAL: Present: abdominal pain, nausea, vomiting, diarrhea. Absent: constipation, melena, hematochezia GENITOURINARY: Absent: dysuria, frequency, urgency, hesitancy, hematuria, flank pain, genital pain MUSCULOSKELETAL: Absent: myalgia, arthralgia, joint swelling SKIN: Absent: rash, itching, pallor HEMATOLOGIC/IMMUNOLOGIC: Absent: easy bleeding, easy bruising, lymphadenopathy, frequent infections ENDOCRINE: Absent: unexplained weight gain, unexplained weight loss, heat intolerance, cold intolerance NEUROLOGIC: Absent: headache, focal weakness or paresthesias, dizziness, unsteady gait, seizure, mental status changes, bladder or bowel incontinence PSYCHIATRIC: Absent: anxiety, depression, suicidal or homicidal ideation, hallucinations. Is the patient limited Romansh proficient: No *Physical Exam - Vital Signs Last Vital Signs Temp Pulse Resp BP Pulse Ox 98.1 F 81 18 110/51 L 99 05/27/19 16:07 05/27/19 16:07 05/27/19 16:07 05/27/19 16:07 05/27/19 16:07 - Physical Exam Comments: 05/27/19 19:32 GENERAL: Well developed, well nourished. Awake and alert. No acute distress. HEENT: Normocephalic, atraumatic. PERRLA, EOMI. No conjunctival pallor. Sclera are non- icteric. Moist mucous membranes. Oropharynx is clear. NECK: Supple. Full ROM. No JVD. Carotid pulses 2+ and symmetric, without bruits. No thyromegaly. No lymphadenopathy. CARDIOVASCULAR: Regular rate and rhythm. No murmurs, rubs, or gallops. Distal pulses are 2+ and symmetric. PULMONARY: No evidence of respiratory distress. Lungs clear to auscultation bilaterally. No wheezing, rales or rhonchi. ABDOMINAL: Soft. Non-tender. Non-distended. No rebound or guarding. No organomegaly. Normoactive bowel sounds. MUSCULOSKELETAL Normal range of motion at all joints. No bony deformities or tenderness. No CVA tenderness. EXTREMITIES: No cyanosis. No clubbing. No edema. No calf tenderness. SKIN: Warm and dry. Normal capillary refill. No rashes. No jaundice. NEUROLOGICAL: Alert, awake, appropriate. Cranial nerves 2-12 intact. No deficits to light touch and temperature in face, upper extremities and lower extremities. No motor deficits in the in face, upper extremities and lower extremities. Normoreflexic in the upper and lower extremities. Normal speech. Toes are down- going bilaterally. Gait is normal without ataxia. PSYCHIATRIC: Cooperative. Good eye contact. Appropriate mood and affect. ED Treatment Course - LABORATORY CBC & Chemistry Diagram: 05/27/19 16:43 05/27/19 16:43 - ADDITIONAL ORDERS Additional order review: Laboratory Results 05/27/19 05/27/19 05/27/19 16:45 16:43 16:22 Sodium 138 Potassium 3.7 Chloride 106 Carbon Dioxide 26 Anion Gap 7 L BUN 8.2 Creatinine 0.6 Est GFR (CKD-EPI)AfAm 149.95 Est GFR (CKD-EPI)NonAf 129.38 Random Glucose 84 Calcium 9.1 Total Bilirubin 0.4 AST 21 ALT 34 Alkaline Phosphatase 77 Total Protein 7.0 Albumin 3.7 Beta HCG, Quant 02793.5 Urine Color Yellow Urine Appearance Clear Urine pH 5.5 D Ur Specific [place] 1.019 Urine Protein Negative Urine Glucose (UA) Negative Urine Ketones Negative Urine Blood Negative Urine Nitrite Negative Urine Bilirubin Negative Urine Urobilinogen 1.0 Ur Leukocyte Esterase Negative Blood Type Antibody Screen 05/27/19 16:22 Sodium Potassium Chloride Carbon Dioxide Anion Gap BUN Creatinine Est GFR (CKD-EPI)AfAm Est GFR (CKD-EPI)NonAf Random Glucose Calcium Total Bilirubin AST ALT Alkaline Phosphatase Total Protein Albumin Beta HCG, Quant Urine Color Urine Appearance Urine pH Ur Specific [place] Urine Protein Urine Glucose (UA) Urine Ketones Urine Blood Urine Nitrite Urine Bilirubin Urine Urobilinogen Ur Leukocyte Esterase Blood Type O POSITIVE Antibody Screen Negative 05/27/19 16:43 RBC 4.65 MCV 89.2 MCHC 33.3 RDW 13.5 MPV 8.9 Neutrophils % 60.1 Lymphocytes % 26.5 Monocytes % 10.5 H Eosinophils % 2.7 D Basophils % 0.2 - Medications Given in the ED: ED Medications Discontinued Medications Generic Name Dose Route Start Last Admin Trade Name Freq PRN Reason Stop Dose Admin Acetaminophen 1,000 mg 05/27/19 17:59 05/27/19 18:59 Ofirmev Injection - IVPB 05/27/19 18:00 1,000 mg ONCE ONE Administration Diphenhydramine HCl 12.5 mg 05/27/19 17:59 05/27/19 18:59 Benadryl Injection - IVPB 05/27/19 18:00 12.5 mg ONCE ONE Administration Sodium Chloride 1,000 mls @ 1,000 mls/hr 05/27/19 16:09 05/27/19 16:59 Normal Saline - IV 05/27/19 17:08 1,000 mls/hr ASDIR STA Administration Sodium Chloride 1,000 mls @ 1,000 mls/hr 05/27/19 17:59 05/27/19 18:59 Normal Saline - IV 05/27/19 18:58 1,000 mls/hr ASDIR STA Administration Metoclopramide HCl 10 mg 05/27/19 17:59 05/27/19 19:00 Reglan Injection - IVPB 05/27/19 18:00 10 mg ONCE ONE Administration *DC/Admit/Observation/Transfer Diagnosis at time of Disposition: Hyperemesis Qualifiers: Weeks of gestation: less than 8 weeks Qualified Code(s): Z3A.01 - Less than 8 weeks gestation of - Discharge Dispostion Disposition: HOME Condition at time of disposition: Stable Decision to Admit order: No - Referrals Referrals: Iggy Mustafa MD [Staff Physician] - - Patient Instructions Printed Discharge Instructions: DI for Hyperemesis Gravidarum Additional Instructions: You were evaluated for your nausea and vomiting today You are currently 6 weeks as noted in your ultrasound Take the reglan every 8 hours as needed for nausea and vomiting Drink plenty of fluids and eat a bland diet until your symptoms have resolved. 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
== END 2019-05-27 19:44 | disposition home or self-care (01) ==
LOC: JER 16:04
PROC: 3E0337Z Introduction of Electrolytic and Water Balance Substance into Peripheral Vein, Percutaneous Approach (ICD-10-PCS; principal; 2019-05-27)
PROC: 3E033NZ Introduction of Analgesics, Hypnotics, Sedatives into Peripheral Vein, Percutaneous Approach (ICD-10-PCS; 2019-05-27)
PROC: 3E033GC Introduction of Other Therapeutic Substance into Peripheral Vein, Percutaneous Approach (ICD-10-PCS; 2019-05-27)
PROC: 3E033GC Introduction of Other Therapeutic Substance into Peripheral Vein, Percutaneous Approach (ICD-10-PCS; 2019-05-27)
DX: O26.891 Other specified pregnancy related conditions, first trimester (principal); O21.0 Mild hyperemesis gravidarum; Z3A.01 Less than 8 weeks gestation of pregnancy
CPT/HCPCS: 36415; 76817-TC; 80053; 81003; 84702; 85025; 86850; 86900; 86901; 87086; 99283-25; J0131; J7030

== ENCOUNTER 2019-07-10 19:04 | Emergency (ER) | payer OTHER ==
[2019-07-10 19:23] VITALS: BP 114/67; PULSE 99; TEMP 98.6; BMI 25.4
--- NOTE | 2019-07-10 19:42 | PDOC ---
History of Present Illness - General Chief Complaint: Cold Symptoms Stated Complaint: COLD SYMPTOMS Time Seen by Provider: 07/10/19 19:40 - History of Present Illness Initial Comments: 07/10/19 19:42 CHIEF COMPLAINT: cough HISTORY OF PRESENT ILLNESS: 23 yo F with hx of asthma presents to [facility] with cold symptoms x 4 days. Patient reports persistent dry cough and rhinorrhea for the past 4 days. Patient endorses chills but denies any fever, vomiting, diarrhea. No recent travel or sick contacts. PAST MEDICAL HISTORY: Denies past medical history FAMILY HISTORY: Denies SOCIAL HISTORY: Denies tobacco, alcohol, illicit drug use. SURGICAL HISTORY: Denies ALLERGIES: No known drug allergies REVIEW OF SYSTEMS General/Constitutional: Chills. Denies fever. Denies weakness, weight change. HEENT: Denies change in vision. Denies ear pain or discharge. Denies sore throat. Cardiovascular: Denies chest pain or shortness of breath. Respiratory: Cough x 4 days. Denies wheezing, hemoptysis. Gastrointestinal: Denies nausea, vomiting, diarrhea or constipation. Denies rectal bleeding. Genitourinary: Denies dysuria, frequency, or change in urination. Musculoskeletal: Denies joint or muscle swelling or pain. Denies neck or back pain. Skin and breasts: Denies rash or easy bruising. Neurologic: Denies headache, vertigo, loss of consciousness, or loss of sensation. Psychiatric: Denies depression or anxiety. PHYSICAL EXAM General Appearance: Well-appearing, appropriately dressed. No apparent distress , no intoxication. HEENT: Rhinorrhea, congestion, swollen turbinates. EOMI, PERRLA, normal voice, TMs normal, pharynx normal. No conjunctival pallor. No photophobia, scleral icterus. Neck: Supple. Trachea midline. No tenderness, rigidity, carotid bruit, stridor , lymphadenopathy, or thyromegaly. Respiratory/Chest: Lungs CTAB. No shortness of breath, chest tenderness, respiratory distress, accessory muscle use. No crackles, rales, rhonchi, stridor , wheezing, dullness Cardiovascular: RRR. S1, S2. No JVD, murmur, bradycardia, tachycardia. Vascular Pulses: Dorsalis-Pedis (R): 2+, Dorsalis-Pedis (L): 2+ Gastrointestinal/Abdominal: Normal bowel sounds. Abdomen soft, non-distended. No tenderness or rebound tenderness. No organomegaly, pulsatile mass, guarding , hernia, hepatomegaly, splenomegaly. Lymphatic: No adenopathy, tenderness. Musculoskeletal/Extremities: Normal inspection. FROM of all extremities, normal capillary refill. Pelvis Stable. No CVA tenderness. No tenderness to extremities, pedal edema, swelling, erythema or deformity. Integumentary: Appropriate color, dry, warm. 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 Fully oriented, alert. Appropriate mood/affect. Motor strength 5/5. No appreciable EOM palsy, facial droop or sensory deficit. 07/10/19 19:49 Past History - Past Medical History Allergies/Adverse Reactions: Allergies Allergy/AdvReac Type Severity Reaction Status Date / Time No Known Allergies Allergy Verified 05/27/19 16:09 Home Medications: Ambulatory Orders Ibuprofen 400 mg PO Q6H PRN #30 tablet 10/29/17 Metoclopramide HCl [Reglan -] 10 mg PO TID #21 tablet 05/27/19 Albuterol Sulfate Inhaler - [Ventolin HFA Inhaler -] 1 - 2 inh PO Q4H #1 inhaler 07/10/19 Benzonatate [Tessalon Pearls -] 100 mg PO TID #21 capsule 07/10/19 Pseudoephedrine HCl [Pseudoephedrine ER] 120 mg PO BID #20 tablet.er 07/10/19 Asthma: Yes Cancer: No Cardiac Disorders: No COPD: No Diabetes: No HTN: No Seizures: No Thyroid Disease: No - Surgical History Abdominal Surgery: No - Reproductive History (#): 3 Para: 1 Therapeutic (s) & number: Yes (elective) - Immunization History Td Vaccination: Yes Immunization Up to Date: Yes - Psycho Social/Smoking Cessation Hx Smoking History: Never smoked Have you smoked in the past 12 months: No Number of Cigarettes Smoked Daily: 2 Hx Alcohol Use: No Drug/Substance Use Hx: No Substance Use Type: Alcohol Hx Substance Use Treatment: No *Physical Exam - Vital Signs Last Vital Signs Temp Pulse Resp BP Pulse Ox 98.6 F 99 H 20 114/67 100 07/10/19 19:19 07/10/19 19:19 07/10/19 19:19 07/10/19 19:19 10/19/19 19:19 Medical Decision Making - Medical Decision Making 07/10/19 19:54 23 yo F with hx of asthma presents to [facility] with cold symptoms x 4 days. Clinical presentation consistent with viral URI. Will treat symptomatically. Advised patient to take medication as prescribed and follow up with PCP if symptoms persist past 4-5 days. Advised patient of signs and symptoms for return to ED. Patient verbalized understanding and agrees to plan. Discharge - Discharge Information Problems reviewed: Yes Clinical Impression/Diagnosis: Viral upper respiratory illness Condition: Stable Disposition: HOME - Admission No - Additional Discharge Information Prescriptions: Albuterol Sulfate Inhaler - [Ventolin HFA Inhaler -] 1 - 2 inh PO Q4H #1 inhaler Benzonatate [Tessalon Pearls -] 100 mg PO TID #21 capsule Pseudoephedrine HCl [Pseudoephedrine ER] 120 mg PO BID #20 tablet.er - Follow up/Referral Referrals: Luiz Yeager [Primary Care Provider] - - Patient Discharge Instructions Patient Printed Discharge Instructions: DI for Viral Upper Respiratory Infection -- Adult - Post Discharge Activity
== END 2019-07-10 20:13 | disposition home or self-care (01) ==
LOC: JERFT 19:04
DX: J06.9 Acute upper respiratory infection, unspecified (principal); B97.89 Other viral agents as the cause of diseases classified elsewhere; J45.909 Unspecified asthma, uncomplicated
CPT/HCPCS: 99281-25

== ENCOUNTER 2019-09-20 15:09 | Emergency (ER) | payer OTHER ==
[2019-09-20 15:16] VITALS: BP 138/80; PULSE 90; TEMP 98.3; BMI 29.5
[2019-09-20] MEDS ORDERED: ACETAMINOPHEN 500 MG TABLET (FP) PO ONE (15:17)
--- NOTE | 2019-09-20 15:17 | PDOC ---
Rapid Medical Evaluation Time Seen by Provider: 09/20/19 15:12 Medical Evaluation: Allergies Allergy/AdvReac Type Severity Reaction Status Date / Time No Known Allergies Allergy Verified 05/27/19 16:09 09/20/19 15:12 CC: b/l wrist pain x1 month. also with SOB while trying to sleep. 6 wks . LMP-08/10. 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 PE: Lungs CTAB. No focal findings to wrists. Orders: influenza testing Patient will proceed to ED for further evaluation. Discharge Disposition - Diagnosis Wrist pain - Referrals - Patient Instructions - Post Discharge Activity
[2019-09-20] MEDS ORDERED: ACETAMINOPHEN 325 MG TABLET (FP) ONE (16:05)
--- NOTE | 2019-09-20 16:32 | PDOC ---
History of Present Illness - General Chief Complaint: Pain Stated Complaint: PAIN Time Seen by Provider: 09/20/19 15:12 History Source: Patient Exam Limitations: No Limitations - History of Present Illness Initial Comments: 09/20/19 17:28 24-year-old 8 weeks female presents to ED for complaints of intermittent shortness of breath while at rest but denies any shortness of breath on exertion, lower extremity edema, fever, chills, headache, cough abdominal Pain, vaginal bleeding, or vaginal discharge. Is this a multiple visit Asthma Patient?: No Timing/Duration: other (1 week) Severity: mild Associated Symptoms: reports: shortness of breath Past History - Travel Traveled outside of the country in the last 30 days: No Close contact w/someone who was outside of country & ill: No - Past Medical History Allergies/Adverse Reactions: Allergies Allergy/AdvReac Type Severity Reaction Status Date / Time No Known Allergies Allergy Verified 09/20/19 15:17 Home Medications: Ambulatory Orders NK [No Known Home Medication] 09/20/19 Asthma: Yes Cancer: No Cardiac Disorders: No COPD: No Diabetes: No HTN: No Seizures: No Thyroid Disease: No - Surgical History Abdominal Surgery: No - Reproductive History (#): 3 Para: 1 Therapeutic (s) & number: Yes (elective) - Immunization History Td Vaccination: Yes Immunization Up to Date: Yes - Psycho Social/Smoking Cessation Hx Smoking History: Never smoked Have you smoked in the past 12 months: No Number of Cigarettes Smoked Daily: 2 Hx Alcohol Use: No Drug/Substance Use Hx: No Substance Use Type: Alcohol Hx Substance Use Treatment: No Patient Lives Alone: No Lives with/in: parents Review of Systems - Review of Systems Able to Perform ROS?: No Is the patient limited Malawian proficient: No Constitutional: No: Symptoms Reported HEENTM: No: Symptoms Reported Respiratory: Yes: SOB at Rest. No: Cough, Orthopnea Cardiac (ROS): No: Symptoms Reported ABD/GI: No: Symptoms Reported : No: Symptoms Reported Musculoskeletal: No: Symptoms Reported Integumentary: No: Symptoms Reported Neurological: No: Symptoms reported Endocrine: No: Symptoms Reported Hematologic/Lymphatic: No: Symptoms Reported *Physical Exam - Vital Signs Last Vital Signs Temp Pulse Resp BP Pulse Ox 98.3 F 90 18 138/80 99 09/20/19 15:11 09/20/19 15:11 12/30/19 15:11 09/20/19 15:11 09/20/19 15:11 - Physical Exam General Appearance: Yes: Nourished, Appropriately Dressed. No: Apparent Distress HEENT: negative: Pale Conjunctivae Neck: positive: Normal Thyroid, Supple Respiratory/Chest: positive: Lungs Clear, Normal Breath Sounds. negative: Respiratory Distress, Accessory Muscle Use Cardiovascular: positive: Regular Rhythm, Regular Rate. negative: Murmur Gastrointestinal/Abdominal: positive: Soft. negative: Tenderness Musculoskeletal: negative: CVA Tenderness Extremity: positive: Normal Inspection Integumentary: positive: Normal Color, Warm, Moist Neurologic: positive: Normal Mood/Affect, Motor Strength 01/24 ED Treatment Course - LABORATORY CBC & Chemistry Diagram: 09/20/19 16:30 - Medications Given in the ED: ED Medications Discontinued Medications Generic Name Dose Route Start Last Admin Trade Name Freq PRN Reason Stop Dose Admin Acetaminophen 1,000 mg 09/20/19 15:17 09/20/19 16:17 Tylenol - PO 09/20/19 15:18 1,000 mg ONCE ONE Administration Medical Decision Making - Medical Decision Making 09/20/19 17:06 Chief complaint: Shortness of breath at rest denies any other complaints patient currently 8 weeks . Exam: No abdominal tenderness lungs clear auscultation vital signs stable Plan: D-dimer, CBC 09/20/19 18:20 Laboratory Tests 09/20/19 09/20/19 09/20/19 16:10 16:30 16:38 WBC 8.7 Hgb 13.9 Hct 42.2 Absolute Neuts (auto) 4.9 D-Dimer < 215 Influenza A (Rapid) Pending Influenza B (Rapid) Negative Patient has been asymptomatic upon arrival. Patient wants to go home. Patient discharged home to follow-up with her COMMUNITY DEVELOPMENT PLANNER this Friday for ultrasound Discharge - Discharge Information Problems reviewed: Yes Clinical Impression/Diagnosis: Wrist pain, Shortness of breath at rest Condition: Good Disposition: HOME - Follow up/Referral Referrals: Luiz Yeager [Primary Care Provider] - - Patient Discharge Instructions Patient Printed Discharge Instructions: Managing Symptoms of Additional Instructions: Please follow-up with your COMMUNITY DEVELOPMENT PLANNER in regards to your ultrasound scheduled for this Friday. Drink plenty of fluids. Return to ED if symptoms worsen. - Post Discharge Activity
[2019-09-20 16:55] LABS: BASO % 0.7 % (0-2.0); EOS % 4.9 % (0-4.5); HEMATOCRIT 42.2 % (32.4-45.2); HEMOGLOBIN 13.9 GM/dL (10.7-15.3); LYMPH % 30.3 % (8-40); MCH 29.1 pg (25.7-33.7); MCHC 32.9 g/dl (32.0-36.0); MEAN CELL VOLUME 88.4 fl (80-96); MEAN PLT VOLUME 8.8 fl (7.5-11.1); MONO % 7.5 % (3.8-10.2); NEUT % 56.6 % (42.8-82.8); PLATELET COUNT 280 K/MM3 (134-434); RBC 4.78 M/mm3 (3.60-5.2); RDW 13.4 % (11.6-15.6); WHITE BLOOD COUNT 8.7 K/mm3 (4.0-10.0)
== END 2019-09-20 17:30 | disposition home or self-care (01) ==
LOC: JERFT 15:09 → JER 15:09
DX: O99.89 Other specified diseases and conditions complicating pregnancy, childbirth and the puerperium (principal); R06.02 Shortness of breath; M25.532 Pain in left wrist; M25.531 Pain in right wrist; Z3A.08 8 weeks gestation of pregnancy
CPT/HCPCS: 36415; 85025; 85379; 87804; 99283-25

== ENCOUNTER 2019-10-01 20:09 | Emergency (ER) | payer OTHER ==
[2019-10-01 20:13] VITALS: BP 120/79; PULSE 81; TEMP 99.1; BMI 29.5
--- NOTE | 2019-10-01 20:13 | PDOC ---
Rapid Medical Evaluation Chief Complaint: Toothache Time Seen by Provider: 10/01/19 20:11 Medical Evaluation: Allergies Allergy/AdvReac Type Severity Reaction Status Date / Time No Known Allergies Allergy Verified 09/20/19 15:17 10/01/19 20:11 HPI: toothache and fever x1 day 8 weeks gravid Tylenol 2 hours ago PE: No facial swelling ORDERS: Nothing 10/01/19 20:12 10/01/19 20:12 Discharge Disposition - Diagnosis Toothache - Referrals - Patient Instructions - Post Discharge Activity
--- NOTE | 2019-10-01 22:16 | PDOC ---
History of Present Illness - General Chief Complaint: Toothache Stated Complaint: TOOTHACHE Time Seen by Provider: 10/01/19 20:11 History Source: Patient - History of Present Illness Initial Comments: 10/01/19 22:33 Chief complaint: Toothache Patient 24-year-old female, who states she is 8 weeks with tooth ache for 1 day. No fever no difficulty swallowing. Patient took Tylenol prior to coming to ER. GENERAL/CONSTITUTIONAL: No fever, weakness. dizziness HEAD, EYES, EARS, NOSE AND THROAT: No change in vision. No ear pain or discharge. No sore throat. + Toothache CARDIOVASCULAR: No chest pain RESPIRATORY: No shortness of breath or cough GASTROINTESTINAL: No pain, nausea, vomiting, diarrhea or constipation GENITOURINARY: No dysuria MUSCULOSKELETAL: No neck or back pain SKIN: No rash NEUROLOGIC: No headache, vertigo, loss of consciousness, or loss of sensation. GENERAL: The patient is awake, alert, and fully oriented, in no acute distress. HEAD: Normal with no signs of trauma. EYES: Pupils equal, round and reactive to light, sclera anicteric, conjunctiva clear. ENT: pharynx: no erythema, no exudate, uvula midline. Multiple areas of dental fillings, dental fillings to the area of question in the left upper rear teeth with + tenderness, no gross swelling, no neck swelling, speech normal NECK: supple CHEST: clear, nontender, rr EXTREMITIES: Normal range of motion, no edema. NEUROLOGICAL: Normal speech, normal gait. SKIN: Warm, Dry Past History - Past Medical History Allergies/Adverse Reactions: Allergies Allergy/AdvReac Type Severity Reaction Status Date / Time No Known Allergies Allergy Verified 10/01/19 20:13 Home Medications: Ambulatory Orders Amoxicillin 875 mg PO BID #14 tablet 10/01/19 Asthma: Yes Cancer: No Cardiac Disorders: No COPD: No Diabetes: No HTN: No Seizures: No Thyroid Disease: No - Surgical History Abdominal Surgery: No - Reproductive History (#): 3 Para: 1 Therapeutic (s) & number: Yes (elective) - Immunization History Td Vaccination: Yes Immunization Up to Date: Yes - Psycho Social/Smoking Cessation Hx Smoking History: Never smoked Have you smoked in the past 12 months: No Number of Cigarettes Smoked Daily: 2 Hx Alcohol Use: No Drug/Substance Use Hx: No Substance Use Type: Alcohol Hx Substance Use Treatment: No *Physical Exam - Vital Signs Last Vital Signs Temp Pulse Resp BP Pulse Ox 99.1 F 81 18 120/79 99 10/01/19 20:11 10/01/19 20:11 10/01/19 20:11 10/01/19 20:11 10/01/19 20:11 Medical Decision Making - Medical Decision Making 10/01/19 22:35 Healthy 24-year-old female who is 8 weeks with 1 day of toothache. Patient took Tylenol prior to coming to ER. Tooth in question has a filling in it. Patient will be given amoxicillin. Explained to patient and partner why she cannot get stronger pain medicines. Printed her out information from online regarding pain management in and home remedies. Patient has not tried to see a dentist. She has a dentist that she can see. Discussed issues, findings, results, applicable medications and treatments and follow-up. All these were understood and all questions were answered Discharge - Discharge Information Problems reviewed: Yes Clinical Impression/Diagnosis: Toothache Condition: Stable Disposition: HOME - Additional Discharge Information Prescriptions: Amoxicillin 875 mg PO BID #14 tablet - Follow up/Referral Referrals: Luiz Yeager [Primary Care Provider] - - Patient Discharge Instructions Patient Printed Discharge Instructions: DI for Dental Pain Additional Instructions: You can continue to take Tylenol regular strength 2 tablets every 4 hours or extra strength 2 tablets every 6 hours. Do not take more than 4000 mg in 24 hours as this is harmful for your liver. You can follow the sheet on the home remedies or feel free to investigate other remedies yourself by doing a search online. Take the amoxicillin as directed Follow-up with dentist on Friday - Post Discharge Activity
== END 2019-10-01 22:20 | disposition home or self-care (01) ==
LOC: JERFT 20:09
DX: O99.89 Other specified diseases and conditions complicating pregnancy, childbirth and the puerperium (principal); K08.89 Other specified disorders of teeth and supporting structures; Z3A.08 8 weeks gestation of pregnancy
CPT/HCPCS: 99281-25

== ENCOUNTER 2019-10-20 19:34 | Emergency (ER) | payer OTHER ==
--- NOTE | 2019-10-20 19:48 | PDOC ---
Rapid Medical Evaluation Chief Complaint: Nausea/Vomiting Time Seen by Provider: 10/20/19 19:44 Medical Evaluation: Allergies Allergy/AdvReac Type Severity Reaction Status Date / Time No Known Allergies Allergy Verified 10/01/19 20:13 10/20/19 19:46 CC: n/v x1 day. 11wks . 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 PE: No focal findings Orders: urine, labs, NS Patient will proceed to ER for further evaluation. Discharge Disposition - Diagnosis Nausea & vomiting - Referrals - Patient Instructions - Post Discharge Activity
[2019-10-20] MEDS ORDERED: SODIUM CHLORIDE 1,000 ML IV STA ×2 (19:49→22:30)
[2019-10-20] MEDS ORDERED: ONDANSETRON 4 MG/2 ML VIAL IVPUSH ONE (19:49)
[2019-10-20 19:50] VITALS: BP 110/59; PULSE 88; TEMP 97.6; BMI 29.5
[2019-10-20 21:12] LABS: BASO % 0.3 % (0-2.0); EOS % 1.5 % (0-4.5); HEMATOCRIT 41.9 % (32.4-45.2); HEMOGLOBIN 13.9 GM/dL (10.7-15.3); LYMPH % 23.6 % (8-40); MCH 29.4 pg (25.7-33.7); MCHC 33.1 g/dl (32.0-36.0); MEAN CELL VOLUME 88.8 fl (80-96); MONO % 6.6 % (3.8-10.2); PLATELET COUNT 278 K/MM3 (134-434); RBC 4.72 M/mm3 (3.60-5.2); RDW 13.8 % (11.6-15.6)
[2019-10-20 21:14] LABS: PH,URINE 6.5 (5.0-8.0); URINE APPEARANCE CLEAR; URINE BILIRUBIN NEGATIVE (NEGATIVE); URINE COLOR YELLOW; URINE GLUCOSE (UA) NEGATIVE (NEGATIVE); URINE KETONE NEGATIVE (NEGATIVE); URINE LEUK ESTERASE NEGATIVE (NEGATIVE); URINE NITRITE NEGATIVE (NEGATIVE); URINE PROTEIN NEGATIVE (NEGATIVE)
[2019-10-20 21:26] LABS: ALBUMIN 3.8 g/dl (3.4-5.0); BILIRUBIN,TOTAL 0.4 mg/dL (0.2-1); BLOOD UREA NITROGEN 8.4 mg/dL (7-18); CALCIUM 9.5 mg/dL (8.5-10.1); CREATININE 0.6 mg/dL (0.55-1.3); POTASSIUM 3.8 mmol/L (3.5-5.1); TOT PROT 7.4 g/dl (6.4-8.2)
--- NOTE | 2019-10-20 22:13 | PDOC ---
Attending Attestation - Resident Resident Name: Aiyana Mckinney - ED Attending Attestation I have performed the following: I have examined & evaluated the patient, The case was reviewed & discussed with the resident, I agree w/resident's findings & plan - HPI HPI: 10/21/19 00:46 see resident hpi - Physicial Exam PE: 10/21/19 00:47 see resident exam - Medical Decision Making 10/21/19 00:47 24-year-old female, approximately 11 weeks gestational age complaining of epigastric pain and vomiting Labs were unremarkable Ultrasound the right upper quadrant as well as pelvis reviewed Patient feeling better, she has tolerated p.o. in the emergency department and is requesting IV to be removed Will DC with outpatient OB follow-up
[2019-10-20] MEDS ORDERED: FAMOTIDINE 20 MG/50 ML IVPB 20 MG/50 ML MG IVPB ONE ×2 (22:30→22:45)
[2019-10-20] MEDS ORDERED: ONDANSETRON 4 MG/2 ML VIAL ONE (22:45)
--- NOTE | 2019-10-20 23:01 | PDOC ---
History of Present Illness - General Chief Complaint: Nausea/Vomiting Stated Complaint: /11WKS/VOMITING/NAUSEA Time Seen by Provider: 10/20/19 19:44 History Source: Patient Exam Limitations: No Limitations - History of Present Illness Initial Comments: 10/20/19 22:57 24yF at 11w gestation presenting to ED with complaints of nausea and vomiting since yesterday. pt states that whatever she ends up vomiting whatever she tries to eat or drink. Denies abdominal pain, fever, headache, chest pain, back pain, diarrhea/constipation, recent travel, vaginal bleeding, leakage of fluid. 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 PMD: PMH: none PSH: Meds: none Allergies: nkda Past History - Past Medical History Allergies/Adverse Reactions: Allergies Allergy/AdvReac Type Severity Reaction Status Date / Time No Known Allergies Allergy Verified 10/01/19 20:13 Home Medications: Ambulatory Orders Amoxicillin 875 mg PO BID #14 tablet 10/01/19 Asthma: Yes Cancer: No Cardiac Disorders: No COPD: No Diabetes: No HTN: No Seizures: No Thyroid Disease: No - Surgical History Abdominal Surgery: No - Reproductive History (#): 3 Para: 1 Therapeutic (s) & number: Yes (elective) - Immunization History Td Vaccination: Yes Immunization Up to Date: Yes - Psycho Social/Smoking Cessation Hx Smoking History: Never smoked Have you smoked in the past 12 months: No Number of Cigarettes Smoked Daily: 2 Hx Alcohol Use: No Drug/Substance Use Hx: No Substance Use Type: Alcohol Hx Substance Use Treatment: No Review of Systems - Review of Systems Constitutional: No: Symptoms Reported HEENTM: No: Symptoms Reported Respiratory: No: Symptoms reported Cardiac (ROS): No: Symptoms Reported ABD/GI: Yes: See HPI : No: Symptoms Reported Musculoskeletal: No: Symptoms Reported Integumentary: No: Symptoms Reported Neurological: No: Symptoms reported *Physical Exam - Vital Signs Last Vital Signs Temp Pulse Resp BP Pulse Ox 97.6 F 88 20 110/59 L 100 10/20/19 19:45 10/20/19 19:45 10/20/19 19:45 10/20/19 19:45 10/20/19 19:45 - Physical Exam General Appearance: Yes: Nourished, Appropriately Dressed. No: Apparent Distress HEENT: positive: EOMI, MONAE, Normal ENT Inspection, Other (moist mucosa) Neck: positive: Trachea midline, Supple Respiratory/Chest: positive: Lungs Clear, Normal Breath Sounds Cardiovascular: positive: Regular Rhythm, Regular Rate, S1, S2. negative: Edema , JVD, Murmur Vascular Pulses: Dorsalis-Pedis (R): 2+, Doralis-Pedis (L): 2+ Gastrointestinal/Abdominal: positive: Normal Bowel Sounds, Soft, Tenderness ( epigastric). negative: Hernia Musculoskeletal: negative: CVA Tenderness Extremity: positive: Pelvis Stable. negative: Swelling Integumentary: positive: Normal Color, Dry, Warm Neurologic: positive: head waiter/waitress II-XII NML intact, Fully Oriented, Alert, Normal Mood/ Affect, Normal Response, Motor Strength 01/24 ED Treatment Course - LABORATORY CBC & Chemistry Diagram: 10/20/19 20:10 10/20/19 20:10 - ADDITIONAL ORDERS Additional order review: Laboratory Results 10/20/19 10/20/19 20:10 20:10 Sodium 138 Potassium 3.8 Chloride 105 Carbon Dioxide 25 Anion Gap 8 BUN 8.4 Creatinine 0.6 Est GFR (CKD-EPI)AfAm 148.90 Est GFR (CKD-EPI)NonAf 128.48 Random Glucose 81 Calcium 9.5 Total Bilirubin 0.4 AST 24 ALT 36 Alkaline Phosphatase 70 Total Protein 7.4 Albumin 3.8 Lipase 95 Urine Color Yellow Urine Appearance Clear Urine pH 6.5 Ur Specific [place]ell 1.024 Urine Protein Negative Urine Glucose (UA) Negative Urine Ketones Negative Urine Blood Negative Urine Nitrite Negative Urine Bilirubin Negative Urine Urobilinogen 1.0 Ur Leukocyte Esterase Negative 10/20/19 20:10 RBC 4.72 MCV 88.8 MCHC 33.1 RDW 13.8 MPV 9.0 Neutrophils % 68.0 D Lymphocytes % 23.6 D Monocytes % 6.6 Eosinophils % 1.5 Basophils % 0.3 - RADIOLOGY Radiology Studies Ordered: Category Date Time Status ABDOMEN US -LIMITED [US] Stat Ultrasound 10/20/19 22:27 Ordered <14WKS US [US] Stat Ultrasound 10/20/19 22:27 Ordered - Medications Given in the ED: ED Medications Discontinued Medications Generic Name Dose Route Start Last Admin Trade Name Freq PRN Reason Stop Dose Admin Sodium Chloride 1,000 mls @ 1,000 mls/hr 10/20/19 19:49 10/20/19 22:42 Normal Saline - IV 10/20/19 20:48 Not Given ASDIR STA Medical Decision Making - Medical Decision Making 10/20/19 23:00 24y F presenting to ED with n/v x1d. 11w . no confirmatory us done so far. low suspicion for hyperemesis gravidum. ddx includes gallbladder pathology, gastritis, gerd, pud. labs done by [facility]. wbc 11. normal electrolytes. urine negative for infection and ketones. will give zofran, pepcid, fluids. RUQ sono to r/o stones/cholecystitis and transabdominal us to check for intrautrine . will reassess. pt feeling better, asking for food and water. pending sono reads. po challenge if negative ruq sono. likely dc home. pt has ob f/u. will give referral to gi. 10/21/19 00:46 RUQ: Right upper quadrant ultrasound:The liver is normal, without mass or biliary duct dilation. The gallbladder is normal. The CBD is not dilated and measures4 millimeters in diameter. Right kidney measures 10.9centimeters in length and is unremarkable. The visualized aorta and IVC are normal. Pancreas is partially obscured, but appears normal. pelvic: Ultrasound :Uterus is anteverted and measures 11.1centimeters in length. There is a single live IUP with estimated gestational age of 9weeks and 1days. There is a normal heart rate of 179beats per minute. There is no subchorionic bleed. The right ovary measures 3.5centimeters in length and appears normal. The left ovary measures 3.2centimeters in length and appears normal. There is no significant free fluid. 10/21/19 00:51 Discharge - Discharge Information Problems reviewed: Yes Clinical Impression/Diagnosis: Nausea & vomiting Qualifiers: Vomiting type: unspecified Vomiting Intractability: non-intractable Qualified Code(s): R11.2 - Nausea with vomiting, unspecified Condition: Improved Disposition: HOME - Admission No - Follow up/Referral Referrals: Karishma Yeager-Leonidas Lauren [Primary Care Provider] - Lamonte White DO [Staff Physician] - Lila Jenkins DO [Staff Physician] - Bryant Venegas MD [Staff Physician] - - Patient Discharge Instructions Patient Printed Discharge Instructions: Nausea of (Alternative Therapy), DI for Vomiting -- Adult Additional Instructions: You were seen in the emergency room for nausea and vomiting. This is likely due to , GERD or a stomach bug. Please keep yourself well hydrated. Stick to a liquid diet and slowly advance to a regular diet if you are able to tolerate liquids, soft solids. Please keep your appointment with your Outboard Motor Inspector. I recommend seeing a GI doctor as well. Referrals are provided below. Come back to the emergency room if you continue vomiting, are unable to eat or drink anything, develop fever or if any new or concerning symptom develops. Thank you - Post Discharge Activity
== END 2019-10-21 00:55 | disposition home or self-care (01) ==
LOC: JER 19:34
PROC: 3E033GC Introduction of Other Therapeutic Substance into Peripheral Vein, Percutaneous Approach (ICD-10-PCS; principal; 2019-10-20)
PROC: 3E033GC Introduction of Other Therapeutic Substance into Peripheral Vein, Percutaneous Approach (ICD-10-PCS; 2019-10-20)
DX: O26.891 Other specified pregnancy related conditions, first trimester (principal); O21.8 Other vomiting complicating pregnancy; Z3A.11 11 weeks gestation of pregnancy
CPT/HCPCS: 36415; 76705-TC; 76801-TC; 80053; 81003; 83690; 85025; 87086; 99282-25; J7030

== ENCOUNTER 2019-11-03 20:54 | Emergency (ER) | payer OTHER ==
[2019-11-03 21:09] VITALS: TEMP 98.9; BMI 30.2
[2019-11-03] MEDS ORDERED: METOCLOPRAMIDE HCL INJECTION 10 MG/2 ML VIAL IVPUSH ONE (23:41)
[2019-11-03] MEDS ORDERED: SODIUM CHLORIDE 0.9% 1000 ML INFUS.BAG IV ONE (23:41)
[2019-11-03 23:59] LABS: EPI CELLS 8.7 /HPF (0-5/HPF); HYALINE CASTS 20 /lpf (0-8); URINE APPEARANCE CLOUDY; URINE BACTERIA 311.1 /hpf (NEGATIVE); URINE BILIRUBIN NEGATIVE (NEGATIVE); URINE COLOR YELLOW; URINE GLUCOSE (UA) NEGATIVE (NEGATIVE); URINE KETONE TRACE (NEGATIVE); URINE LEUK ESTERASE 2+ (NEGATIVE); URINE NITRITE NEGATIVE (NEGATIVE); URINE PROTEIN NEGATIVE (NEGATIVE); URINE WBC 50 /hpf (0-5)
[2019-11-04] MEDS ORDERED: CEPHALEXIN MONOHYDRATE 500 MG CAPSULE (UD) PO ONE (00:08)
--- NOTE | 2019-11-04 00:15 | PDOC ---
Documentation entered by Remberto Mcclelland SCRIBE, acting as scribe for Maxine Garcia DO. Maxine Garcia DO: This documentation has been prepared by the Stas holcomb Xhesika, SCRIBE, under my direction and personally reviewed by me in its entirety. I confirm that the documentation accurately reflects all work, treatment, procedures, and medical decision making performed by me. History of Present Illness - General Chief Complaint: Nausea/Vomiting Stated Complaint: 11WK KS/CHEST PAIN VOMITING Time Seen by Provider: 11/03/19 23:09 History Source: Patient Exam Limitations: No Limitations - History of Present Illness Initial Comments: 11/03/19 23:43 The patient is a 24 year old female, , currently 11 weeks , with a significant PMH of asthma who presents to the emergency department for 2 weeks of vomiting. The patient states she was seen here 2 weeks ago for similar symptoms and since then she has been vomiting everyday, but, today the patient endorsed multiple episodes of nbnb emesis, prompting her arrival to the ED. Pt states she endorsed mild vaginal bleeding today after wiping, but nothing else since then. Pt states her LMP was 07/2019. Pt states she takes her vitamins but is not able to keep it down. Pt denies any vaginal discharge or sexual intercourse yesterday. The patient denies chest pain, shortness of breath, headache and dizziness. Denies fever, chills, cough,diarrhea and constipation. Denies dysuria, frequency , urgency and hematuria. Allergies: NKDA Past History - Past Medical History Allergies/Adverse Reactions: Allergies Allergy/AdvReac Type Severity Reaction Status Date / Time No Known Allergies Allergy Verified 11/03/19 21:09 Home Medications: Ambulatory Orders Amoxicillin 875 mg PO BID #14 tablet 10/01/19 Cephalexin Monohydrate [Keflex -] 500 mg PO BID #14 capsule 11/04/19 Clindamycin 1% Gel [Cleocin 1% Gel -] 1 applic VG DAILY #5 tube 11/04/19 Asthma: Yes Cancer: No Cardiac Disorders: No COPD: No Diabetes: No HTN: No Seizures: No Thyroid Disease: No - Surgical History Abdominal Surgery: No - Reproductive History (#): 3 Para: 1 Therapeutic (s) & number: Yes (elective) - Immunization History Td Vaccination: Yes Immunization Up to Date: Yes - Psycho Social/Smoking Cessation Hx Smoking History: Former smoker Have you smoked in the past 12 months: No Number of Cigarettes Smoked Daily: 2 Information on smoking cessation initiated: No Hx Alcohol Use: No Drug/Substance Use Hx: No Substance Use Type: Alcohol Hx Substance Use Treatment: No Review of Systems - Review of Systems Able to Perform ROS?: Yes Comments:: 11/03/19 23:44 GENERAL/CONSTITUTIONAL: No fever or chills. No weakness. HEAD, EYES, EARS, NOSE AND THROAT: No change in vision. No ear pain or discharge. No sore throat. CARDIOVASCULAR: No chest pain or shortness of breath. RESPIRATORY: No cough, wheezing, or hemoptysis. GASTROINTESTINAL: + vomiting. No diarrhea or constipation. GENITOURINARY: No dysuria, frequency, or change in urination. MUSCULOSKELETAL: No joint or muscle swelling or pain. No neck or back pain. SKIN: No rash NEUROLOGIC: No headache, vertigo, loss of consciousness, or change in strength/ sensation. ENDOCRINE: No increased thirst. No abnormal weight change. HEMATOLOGIC/LYMPHATIC: No anemia, easy bleeding, or history of blood clots. ALLERGIC/IMMUNOLOGIC: No hives or skin allergy. *Physical Exam - Vital Signs Last Vital Signs Temp Pulse Resp BP Pulse Ox 98.9 F 89 17 109/61 100 11/03/19 21:06 11/03/19 21:06 11/03/19 21:06 11/03/19 21:06 11/03/19 21:06 - Physical Exam 11/03/19 23:44 GENERAL: Awake, alert, and fully oriented, in no acute distress HEAD: No signs of trauma EYES: PERRLA, EOMI, sclera anicteric, conjunctiva clear ENT: Auricles normal inspection, hearing grossly normal, nares patent, oropharynx clear without exudates. Moist mucosa NECK: Normal ROM, supple, no lymphadenopathy, JVD, or masses LUNGS: Breath sounds equal, clear to auscultation bilaterally. No wheezes, and no crackles HEART: Regular rate and rhythm, normal S1 and S2, no murmurs, rubs or gallops ABDOMEN: Soft, nontender, normoactive bowel sounds. No guarding, no rebound. No masses PELVIC: +white thin discharge, possible BV. EXTREMITIES: Normal range of motion, no edema. No clubbing or cyanosis. No cords, erythema, or tenderness NEUROLOGICAL: Cranial nerves II through XII grossly intact. SKIN: Warm, Dry, normal turgor, no rashes or lesions noted. Heart Score/ECG Review - ECG Intrepretation Comment:: 11/04/19 00:35 sinus at 90, nl axis, nl interval, no acute st/t wave findings ED Treatment Course - LABORATORY CBC & Chemistry Diagram: 11/04/19 00:05 11/04/19 00:05 - ADDITIONAL ORDERS Additional order review: Laboratory Results 11/03/19 23:40 Urine Color Yellow Urine Appearance Cloudy Urine pH 6.0 Ur Specific [place] 1.020 Urine Protein Negative Urine Glucose (UA) Negative Urine Ketones Trace H Urine Blood Negative Urine Nitrite Negative Urine Bilirubin Negative Urine Urobilinogen 1.0 Ur Leukocyte Esterase 2+ H Urine WBC (Auto) 50 Urine Casts (Auto) 20 U Epithel Cells (Auto) 8.7 Urine Bacteria (Auto) 311.1 - RADIOLOGY Radiology Studies Ordered: Category Date Time Status <14WKS US [US] Stat Ultrasound 11/04/19 23:40 Ordered - Medications Given in the ED: ED Medications Discontinued Medications Generic Name Dose Route Start Last Admin Trade Name Freq PRN Reason Stop Dose Admin Metoclopramide HCl 10 mg 11/03/19 23:41 11/04/19 00:10 Reglan Injection - IVPUSH 11/03/19 23:42 10 mg ONCE ONE Administration Sodium Chloride 1,000 ml 11/03/19 23:41 11/04/19 00:10 Normal Saline - IV 11/03/19 23:42 1,000 ml ONCE ONE Administration Medical Decision Making - Medical Decision Making 11/04/19 00:12 a/p: 24yo female with n/v and chest palpitations when she lays on her side -pt denies all complaints at this current time -states vaginal spotting yesterday -states she has not taken vitamins secondary to vomiting -pt is at around 11 weeks gestation -will send labs, tvus -pt with copius white discharge consistent with BV on exam -will send gc/chl -will monitor and reassess 11/04/19 01:13 pt is o+ 11/04/19 01:23 pt without n/v in the ER has appt with [facility] for 2/13 at 430p 11/04/19 01:56 pt with iup at 11w1d discussed labs and imaging pt stable for dc to home on oral and vaginal abx Discharge - Discharge Information Problems reviewed: Yes Clinical Impression/Diagnosis: Nausea & vomiting, Vaginitis, Vaginal bleeding before 22 weeks gestation, UTI ( urinary tract infection) Condition: Stable Disposition: HOME - Admission No - Additional Discharge Information Prescriptions: Cephalexin Monohydrate [Keflex -] 500 mg PO BID #14 capsule Clindamycin 1% Gel [Cleocin 1% Gel -] 1 applic VG DAILY #5 tube - Follow up/Referral Referrals: Luiz Yeager [Primary Care Provider] - - Patient Discharge Instructions Patient Printed Discharge Instructions: Nausea and Vomiting-Adult, DI for Urinary Tract Infection (UTI) Additional Instructions: Please go to your [facility] appointment tomorrow at 430p. Please take all medications as prescribed. Please follow up with your PMD. Please return to the ER with any further concerns or complaint.s - Post Discharge Activity
[2019-11-04 00:17] LABS: BASO % 0.4 % (0-2.0); EOS % 1.4 % (0-4.5); HEMATOCRIT 41.4 % (32.4-45.2); HEMOGLOBIN 14.2 GM/dL (10.7-15.3); LYMPH % 26.3 % (8-40); MCH 30.2 pg (25.7-33.7); MCHC 34.4 g/dl (32.0-36.0); MEAN PLT VOLUME 8.4 fl (7.5-11.1); MONO % 6.8 % (3.8-10.2); NEUT % 65.1 % (42.8-82.8); PLATELET COUNT 256 K/MM3 (134-434); RBC 4.71 M/mm3 (3.60-5.2); RDW 13.8 % (11.6-15.6); WHITE BLOOD COUNT 10.7 K/mm3 (4.0-10.0)
[2019-11-04 01:09] LABS: ALBUMIN 3.4 g/dl (3.4-5.0); BILIRUBIN,TOTAL 0.6 mg/dL (0.2-1); BLOOD UREA NITROGEN 7.2 mg/dL (7-18); CALCIUM 9.5 mg/dL (8.5-10.1); CREATININE 0.6 mg/dL (0.55-1.3); POTASSIUM 4.2 mmol/L (3.5-5.1); TOT PROT 7.4 g/dl (6.4-8.2)
[2019-11-04 02:34] VITALS: BP 110/65; PULSE 81
--- NOTE | 2019-11-04 15:16 | EKG ---
Test Reason : Blood Pressure : / mmHG Vent. Rate : 090 BPM Atrial Rate : 090 BPM P-R Int : 146 ms QRS Dur : 062 ms QT Int : 376 ms P-R-T Axes : 030 060 018 degrees QTc Int : 459 ms NORMAL SINUS RHYTHM NORMAL ECG WHEN COMPARED WITH ECG OF 25-JAN-2013 13:54, NONSPECIFIC T WAVE ABNORMALITY NOW EVIDENT IN ANTERIOR LEADS Confirmed by JEANNINE CARLSON MD ([id number]) on 11/04/2019 3:15:47 PM Referred By: Confirmed By:JEANNINE CARLSON MD
== END 2019-11-04 02:34 | disposition home or self-care (01) ==
LOC: JER 20:54
PROC: 3E033GC Introduction of Other Therapeutic Substance into Peripheral Vein, Percutaneous Approach (ICD-10-PCS; principal; 2019-11-03)
DX: O26.891 Other specified pregnancy related conditions, first trimester (principal); Z3A.11 11 weeks gestation of pregnancy; N76.0 Acute vaginitis; R11.2 Nausea with vomiting, unspecified; N39.0 Urinary tract infection, site not specified
CPT/HCPCS: 36415; 76801-TC; 80053; 81003; 84702; 85025; 86850; 86900; 86901; 87491; 87591; 93005; 93010; 96374; 99285-25; J7030

== ENCOUNTER 2020-03-20 19:13 | Emergency (ER) | payer OTHER ==
--- NOTE | 2020-03-20 19:20 | PDOC ---
Rapid Medical Evaluation Chief Complaint: Pain Time Seen by Provider: 03/20/20 19:19 Medical Evaluation: Allergies Allergy/AdvReac Type Severity Reaction Status Date / Time No Known Allergies Allergy Verified 11/03/19 21:09 03/20/20 19:23 24 year old 31 weeks female c/o RUQ pain on and off for 1 month now pain is worse. patient reports this is complicated by polyhydramnios. patient denies fever, lower abdominal pain, back pain cramps. patient reports feeling the baby move PE: gravid abdomen, A: abdominal pain P: labs abd US, ob limited. once done patient to L&D Discharge Disposition - Diagnosis Right upper quadrant abdominal pain, 31 to 32 weeks gestation of - Referrals - Patient Instructions - Post Discharge Activity
[2020-03-20 19:32] VITALS: BMI 31.1
--- NOTE | 2020-03-20 19:38 | PDOC ---
History of Present Illness - General Chief Complaint: Pain Stated Complaint: /31WKS/PAIN/R/UPPER QUADRANT Time Seen by Provider: 03/20/20 19:19 History Source: Patient - History of Present Illness Initial Comments: 03/20/20 19:39 24 year old 31 weeks gestation female with 4 weeks history of RUQ pain that is increasing in nature. denies NVD. patient reports that she had 2-3 normal BMs today. patient denies vaginal bleeding reports she has some suprapubic pressure. denies abdominal cramping. patient reports that this is complicated by Polyhydramnios. denies urinary symptoms, flank pain, chest pain, cough, URI PMHX: asthma [facility] Past History - Medical History Allergies/Adverse Reactions: Allergies Allergy/AdvReac Type Severity Reaction Status Date / Time No Known Allergies Allergy Verified 11/03/19 21:09 Home Medications: Ambulatory Orders Amoxicillin 875 mg PO BID #14 tablet 10/01/19 Cephalexin Monohydrate [Keflex -] 500 mg PO BID #14 capsule 11/04/19 metroNIDAZOLE [Metronidazole] 250 mg PO TID #21 tablet 11/09/19 Asthma: Yes Cancer: No Cardiac Disorders: No COPD: No Diabetes: No HTN: No Seizures: No Thyroid Disease: No - Surgical History Abdominal Surgery: No - Reproductive History (#): 3 Para: 1 Therapeutic (s) & number: Yes (elective) - Immunization History Td Vaccination: Yes Immunization Up to Date: Yes - Psycho-Social/Smoking History Smoking History: Never smoked Have you smoked in the past 12 months: No Number of Cigarettes Smoked Daily: 2 - Substance Abuse Hx (Audit-C & DAST Scrn) How often the patient has a drink containing alcohol: Never Score: In Men: 4 or > Positive; In Women: 3 or > Positive: 0 Screen Result (Pos requires Nsg. Audit-10AR): Negative In the last yr the pt used illegal drug/Rx for NonMed reason: No Score: Yes response is considered Positive: 0 Screen Result (Positive result requires Nsg. DAST-10): Negative Review of Systems - Review of Systems Able to Perform ROS?: Yes Is the patient limited Greek proficient: No Constitutional: No: Symptoms Reported, See HPI, Chills, Diaphoresis, Fever, Loss of Appetite, Malaise, Night Sweats, Weakness, Weight Stable, Unintentional Wgt. Loss, Unexplained wgt Loss, Other ABD/GI: Yes: Abdominal cramping *Physical Exam - Vital Signs Last Vital Signs Temp Pulse Resp BP Pulse Ox 98.4 F 94 H 18 120/65 97 03/20/20 19:30 03/20/20 19:30 03/20/20 19:30 03/20/20 19:30 03/20/20 19:30 - Physical Exam General Appearance: Yes: Appropriately Dressed Cardiovascular: positive: Regular Rhythm, Regular Rate Gastrointestinal/Abdominal: positive: Normal Bowel Sounds, Tender (RUQ), Other (gravid abdomen) Musculoskeletal: positive: Normal Inspection. negative: CVA Tenderness Extremity: positive: Normal Capillary Refill, Normal Inspection, Normal Range of Motion Integumentary: positive: Normal Color, Dry, Warm Neurologic: positive: Fully Oriented, Alert, Normal Mood/Affect ED Treatment Course - LABORATORY CBC & Chemistry Diagram: 03/20/20 19:35 03/20/20 19:35 - RADIOLOGY Radiology Studies Ordered: Category Date Time Status ABDOMEN US -LIMITED [US] Stat Ultrasound 03/20/20 19:26 Ordered OB LIMITED US [US] Stat Ultrasound 03/20/20 19:28 Ordered ED Progress Note - Progress Note Progress Note: 03/20/20 19:43 A: abdominal pain (RUQ) p: labs abd US: negative OB US: measuring 30 weeks 6 days FHT 130s patient is sent to L&D for evaluation 03/20/20 21:00 Discharge - Discharge Information Problems reviewed: Yes Clinical Impression/Diagnosis: Right upper quadrant abdominal pain, 31 to 32 weeks gestation of - Follow up/Referral - Patient Discharge Instructions - Post Discharge Activity
[2020-03-20 19:57] LABS: BASO % 0.4 % (0-2.0); EOS % 1.6 % (0-4.5); HEMATOCRIT 35.1 % (32.4-45.2); HEMOGLOBIN 11.6 GM/dL (10.7-15.3); LYMPH % 24.4 % (8-40); MCH 28.3 pg (25.7-33.7); MEAN CELL VOLUME 85.8 fl (80-96); MEAN PLT VOLUME 8.4 fl (7.5-11.1); MONO % 12.3 % (3.8-10.2); NEUT % 61.3 % (42.8-82.8); PLATELET COUNT 265 K/MM3 (134-434); RBC 4.09 M/mm3 (3.60-5.2); RDW 13.5 % (11.6-15.6); WHITE BLOOD COUNT 8.4 K/mm3 (4.0-10.0)
[2020-03-20 19:59] LABS: PH,URINE 6.5 (5.0-8.0); URINE APPEARANCE CLOUDY; URINE BILIRUBIN NEGATIVE (NEGATIVE); URINE COLOR YELLOW; URINE GLUCOSE (UA) NEGATIVE (NEGATIVE); URINE KETONE NEGATIVE (NEGATIVE); URINE LEUK ESTERASE NEGATIVE (NEGATIVE); URINE NITRITE NEGATIVE (NEGATIVE); URINE PROTEIN NEGATIVE (NEGATIVE)
[2020-03-20 20:24] LABS: BILIRUBIN,TOTAL 0.4 mg/dL (0.2-1); BLOOD UREA NITROGEN 8.8 mg/dL (7-18); CALCIUM 8.9 mg/dL (8.5-10.1); CREATININE 0.5 mg/dL (0.55-1.3); POTASSIUM 3.8 mmol/L (3.5-5.1); TOT PROT 6.6 g/dl (6.4-8.2)
[2020-03-20] MEDS ORDERED: ELECTROLYTE-148 SOLN 1,000 ML IV ONE (20:30)
[2020-03-20 22:17] VITALS: BP 110/76; PULSE 80; TEMP 98.2
[2020-03-20] MEDS ORDERED: CITRIC ACID/SODIUM CITRATE 30 ML UNIT-DOSE CUP PO ONE (22:45)
== END 2020-03-20 22:45 | disposition home or self-care (01) ==
LOC: JER 19:13
PROC: 3E033GC Introduction of Other Therapeutic Substance into Peripheral Vein, Percutaneous Approach (ICD-10-PCS; principal; 2020-03-20)
DX: O26.893 Other specified pregnancy related conditions, third trimester (principal); R10.11 Right upper quadrant pain; Z3A.31 31 weeks gestation of pregnancy
CPT/HCPCS: 36415; 76705-TC; 76815; 80053; 81003; 83690; 85025; 96365; 96366; 99284-25

== ENCOUNTER 2020-05-22 08:05 | Inpatient (IN) | payer OTHER ==
[2020-05-22] MEDS ORDERED: CITRIC ACID/SODIUM CITRATE 30 ML UNIT-DOSE CUP PO ONE (09:02)
[2020-05-22] MEDS ORDERED: OXYTOCIN 20 UNITS in 0.9% NS 40 UNIT/2,000 ML INFUS.BAG IV ONE (09:15)
[2020-05-22] MEDS ORDERED: ELECTROLYTE-148 SOLN 1,000 ML IV SCH (09:15)
[2020-05-22] MEDS ORDERED: ceFAZolin SODIUM 1 GM VIAL ONE (09:23)
[2020-05-22] MEDS ORDERED: DEXAMETHASONE SOD PHOSPHATE 4 MG/1 ML VIAL ONE (09:23)
[2020-05-22] MEDS ORDERED: morphine SULFATE/PF 0.5 MG/ML (2cc Syringe - QUVA) ONE (09:23)
[2020-05-22] MEDS: ELECTROLYTE-148 SOLN 1,000 ML IV SCH (09:34)
--- NOTE | 2020-05-22 09:45 | HP ---
Past Medical History - Primary Care Physician PCP:: Valentin Gooden - Admission Chief Complaint: Scheduled procedure History of Present Illness: Scheduled repeat C/S History Source: Patient Limitations to Obtaining History: No Limitations - Past Medical History CAMPUS RECEPTIONIST: No: Alzheimer's, CVA, Dementia, Migraine, Multiple Sclerosis, Peripheral Neuropathy, Parkinson's, Seizure, Syncope, TIA, Vertigo, Other Cardiovascular: No: AFIB, Aneurysm, Aortic Insufficiency, Aortic Stenosis, CAD, CHF, Deep Vein Thrombosis, HTN, Hyperlipdemia, OR, Mitral Insufficiency, Mitral Stenosis, Murmur, Pulmonary Hypertension, Other Pulmonary: Yes: Asthma (in childhood. No meds currently) Gastrointestinal: No: Ascites, Cancer, Constipation, Crohn's Disease, Diverticulitis, Diverticulosis, Esophageal Varices, Gastritis, GERD, GI Bleed, Hemorrhoids, Hiatal Hernia, Inflamatory Bowel Disease, Irritable Bowel Disease, Pancreatitis, Peptic Ulcer Disease, Ulcerative Colitis, Other Hepatobiliary: No: Cirrhosis, Cholelithiasis, Cholecystitis, Choledocholithiasis, Hepatitis A, Hepatitis B, Hepatitis C, Other Renal/: No: Renal Failure, Renal Inusuff, BPH, Cancer, Hematuria, Hemodialysis, Neurogenic Bladder, Renal Calculi, UTI, Other Reproductive: No: Ectopic , Endometriosis, Fibroids, PID, Polycystic Ovary Syndrome, Postmenopausal, Other ...: 6 ...Para: 1 ...Term: 1 Heme/Onc: No: Anemia, B12 Deficiency, Bleeding Disorder, Cancer, Current Chemotherapy, Current Radiation Therapy, Hemochromatosis, Hypercoaguable State, Myeloproliferative Synd, Sickle Cell Disease, Sickle Cell Trait, Thrombocytopenia, Other Infectious Disease: No: AIDS, C-Diff, Herpes Zoster, HIV, MRSA, STD's, Tuberculosis, VREF, Other Psych: No: Addictions, Anxiety, Bipolar, Depression, Panic, Psychosis, Schizophrenia, Other Musculoskeletal: No: Bursitis, Chronic low back pain, Hemiparesis, Hemiplegia, Osteoarthritis, Paraplegia, Other Rheumatology: No: Fibromyalgia, Gout, Lupus, Rheumatoid Arthritis, Sarcoidosis, Vasculitis, Other ENT: No: Allergic Rhinitis, Sinusitis, Other Endocrine: No: Tobias's Disease, Vanessa's Disease, Diabetes Insipidus, Diabetes Mellitus, Hyperparathyroidism, Hyperthyroidism, Hypothyroidism, Osteopenia, SIADH, Other Dermatology: No: Basal Cell, Cellulitis, Eczema, Melanoma, Psoriasis, Squamous Cell, Other - Past Surgical History Past Surgical History: Yes: None Hx Myomectomy: No Hx Transabdominal Cerclage: No - Smoking History Smoking history: Never smoked Have you smoked in the past 12 months: No Aproximately how many cigarettes per day: 2 - Alcohol/Substance Use Hx Alcohol Use: No History of Substance Use: reports: None - Social History 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 History of Recent Travel: No Home Medications - Allergies Allergies/Adverse Reactions: Allergies Allergy/AdvReac Type Severity Reaction Status Date / Time No Known Allergies Allergy Verified 03/20/20 22:24 - Home Medications Home Medications: Ambulatory Orders NK [No Known Home Medication] 03/20/20 Family Medical History Family History: Unremarkable Review of Systems - Review of Systems Constitutional: reports: No Symptoms Eyes: reports: No Symptoms HENT: reports: No Symptoms Neck: reports: No Symptoms Cardiovascular: reports: No Symptoms Respiratory: reports: No Symptoms Gastrointestinal: reports: No Symptoms Genitourinary: reports: No Symptoms Breasts: reports: No Symptoms Reported Musculoskeletal: reports: No Symptoms Integumentary: reports: No Symptoms Neurological: reports: No Symptoms Endocrine: reports: No Symptoms Hematology/Lymphatic: reports: No Symptoms Psychiatric: reports: No Symptoms Physical Exam - Maternity Vital Signs: as reported Constitutional: Yes: No Distress HENT: Yes: Atraumatic Neck: Yes: Supple Cardiovascular: Yes: Regular Rate and Rhythm Breast(s): Yes: Other - Abdominal Exam/OB Number of Fetuses: Single Presentation: Vertex Regularity: Irritability Heart Rate (range): 125 Category: I Accelerations: Uniform Decelerations: None - Vaginal Exam/OB Amniotic Membrane Status: Intact - Physical Exam Musculoskeletal: Yes: WNL Extremities: Yes: WNL Edema: Yes Edema: LLE: Trace, RLE: Trace Integumentary: Yes: WNL ...Motor Strength: WNL Psychiatric: Yes: Alert, Oriented Imaging - Results Ultrasound: Report Reviewed Assessment/Plan 24 y/o @ 39.3wks, prior C/S desirng repeat. Risks and complications of procedure discussed and all questions answered. Patient requested scar tissue removal and its respective risks and complications discussed. Covid testing issues despite having it done on 05/19/20 -Proceed with scheduled procedure
[2020-05-22 10:07] VITALS: BMI 30.9
[2020-05-22] MEDS ORDERED: KETOROLAC TROMETHAMINE 30 MG/1 ML VIAL ONE (10:43)
[2020-05-22] MEDS ORDERED: MIDAZOLAM HCL 2 MG/2 ML SINGLE DOSE VIAL ONE (10:47)
[2020-05-22] MEDS ORDERED: KETAMINE HCL 500 MG/10 ML VIAL ONE (10:54)
[2020-05-22] MEDS ORDERED: SENNOSIDES/DOCUSATE COMBO (SENNA PLUS) TABLET (UD) PO PRN (11:10)
[2020-05-22] MEDS: OXYTOCIN 20 UNITS in 0.9% NS 20 UNIT/1,000 ML INFUS.BAG IV SCH ×2 (11:15→22:01)
--- NOTE | 2020-05-22 11:26 | OP ---
Operative Note - Note: Operative Date: 05/22/20 ([id number]) Pre-Operative Diagnosis: previous C/s at term desiring repeat Operation: RLTCS Findings: see dictation Post-Operative Diagnosis: Same as Pre-op Surgeon: Valentin Gooden Wide Load Escort: Kei Mondragon Anesthesia: Spinal Specimens Removed: placenta and skin scar tissue Estimated Blood Loss (mls): 700 Drains, Volume Out (mls): 200 Fluid Volume Replaced (mls): 1,600 Operative Report Dictated: Yes
--- NOTE | 2020-05-22 12:12 | OP ---
DATE OF OPERATION: 05/22/2020 PREOPERATIVE DIAGNOSIS: A 24-year-old 6, para 1-0-4-1 at 39.3 weeks of gestation, prior section, desiring repeat section. POSTOPERATIVE DIAGNOSIS: A 24-year-old 6, para 1-0-4-1 at 39.3 weeks of gestation, prior section, desiring repeat section. PROCEDURE: Repeat low transverse section and skin scar removal. SURGEON: Jason Hardwick MD SHANK FAKER: OLIVIA Rousseau ANESTHESIA: Spinal. ESTIMATED BLOOD LOSS: 700 mL IV FLUIDS: Crystalloid 1600 mL URINE OUTPUT: Clear urine 200 mL COMPLICATIONS: None. FINDINGS: A low transverse skin scar consistent with prior section, a moderate amount of subcutaneous adipose tissue. The fascia was fibrotic, thick and adherent to the underlying rectus muscles. The rectus muscles were fused to each other to the midline. No parietal peritoneal visceral adhesions on entry. Lower uterine segment was not effaced. The was in cephalic presentation. Clear amniotic fluid. Loose nuchal cord x1. Live viable male. Uterus, bilateral tubes and ovaries consistent with normal anatomy. Bladder dome and rectus muscle fascial interface atraumatic. PROCEDURE: The patient was taken to the operating room where anesthesia was found to be adequate. She was then prepped and draped in a normal sterile fashion. Urinary Thornton catheter had been placed previously without difficulty. Appropriate timeout took place. Pfannenstiel skin incision was made with the scalpel following prior section scar. The incision was carried to the underlying fascia with the Bovie. The fascia was incised in the midline and the incision extended laterally with sharp dissection. The underlying rectus muscles were dissected off sharply. The rectus muscles were elevated with Allis clamps and transected superiorly without difficulty. Entry to the peritoneal cavity revealed previously mentioned findings. The incision was extended superior and inferiorly without difficulty with sharp dissection. Bladder blade was placed and the lower uterine segment was noted as above. Transverse lower uterine segment incision was made with the scalpel and incision extended laterally with blunt dissection. Amniotomy revealed clear amniotic fluid. was delivered through the surgical incision with mild fundal pressure without difficulty. Umbilical cord clamped and cut after delay. Samples for blood were obtained. handed off to the waiting NICU staff. The placenta was delivered manually and intact. The uterus was exteriorized through the surgical incision and the intrauterine cavity cleared of all clots and debris. The incision was reapproximated with 1-0 Polysorb running locked suture. Excellent structural reapproximation with 1 layer suture. The uterus was internalized to the pelvic cavity and gutters were cleared of all clots and debris. Secondary inspection revealed once again excellent hemostasis from the incision. Bladder dome and rectus muscle interface examined. The rectus muscles were reapproximated manually and the facial incision was reapproximated with 0 Polysorb running nonlocked suture. Excellent reapproximation achieved and confirmed by digital palpation by the surgeon. Subcutaneous tissues were copiously irrigated and bleeders neutralized with Bovie cautery. Skin scar was excised sharply without difficulty. Specimen sent to Pathology. The skin incision was reapproximated with surgical christopher. Excellent hemostasis and reapproximation at the end of the procedure. Patient in stable condition. Instrument counts reported as correct x2 by the staff. JASON HARDWICK MD [id number] RL
[2020-05-22] MEDS: IBUPROFEN 800 MG/8 ML IJ IVPB PRN (21:55)
[2020-05-23] MEDS: IBUPROFEN 800 MG/8 ML IJ IVPB PRN (05:31)
--- NOTE | 2020-05-23 07:42 | PN ---
Post Progress Note - Subjective Subjective: Thornton is out, not yet ambulating, tolerating PO, lochia decreased Post Day: 1 Type of Delivery: Primary C/S Vital Signs: Vital Signs Temperature 98.6 F 05/23/20 05:57 Pulse Rate 69 05/23/20 05:57 Respiratory Rate 18 05/23/20 05:57 Blood Pressure 103/67 05/23/20 05:57 O2 Sat by Pulse Oximetry (%) 98 05/22/20 22:00 Breast Exam: Yes: Other Uterus: Yes: Fundus Firm Incision: Yes: Dressing dry and intact, Fahad intact Abdomen/GI: Yes: Abdomen soft Lochia, amount: Moderate Extremities: Yes: Calves non-tender Perineum: Yes: Intact Activity: Other Assessment/Plan 24 y/o On POD # 1 S/P RLTCS in stable condition, PP/post-op precautions discussed. -Encourage ambulation -Continue post-op care -D/C home on POD # 2 vs 3
[2020-05-23 07:57] LABS: BASO % 0.2 % (0-2.0); EOS % 0.3 % (0-4.5); HEMATOCRIT 25.7 % (32.4-45.2); HEMOGLOBIN 8.1 GM/dL (10.7-15.3); LYMPH % 23.7 % (8-40); MCH 25.1 pg (25.7-33.7); MCHC 31.4 g/dl (32.0-36.0); MEAN CELL VOLUME 80.1 fl (80-96); MEAN PLT VOLUME 8.4 fl (7.5-11.1); MONO % 11.6 % (3.8-10.2); NEUT % 64.2 % (42.8-82.8); PLATELET COUNT 206 K/MM3 (134-434); RBC 3.21 M/mm3 (3.60-5.2); WHITE BLOOD COUNT 11.7 K/mm3 (4.0-10.0)
--- NOTE | 2020-05-23 11:01 | PN ---
Progress Note (short form) - Note Progress Note: 24F s/p repeat C/S under duramorph spinal. No new c/o. Vital Signs Temp 98.6 F 05/23/20 05:57 Pulse 69 05/23/20 05:57 Resp 18 05/23/20 10:00 BP 103/67 05/23/20 05:57 Pulse Ox 98 05/22/20 22:00 Intake & Output 05/22/20 05/22/20 05/23/20 11:59 23:59 11:59 Intake Total 2250 2150 Output Total 100 1500 500 Balance -199 739 0018 Weight 164 lb Intake: IV 2250 1250 NORMAL SALINE+20 UNITS 250 1250 OXYTOCIN - 20 unit In 1, 000 ml @ 125 mls/hr IV ASDIR TERE Rx#:[id number] Plasma-Lyte 148 - 1,000 2000 ml @ 125 mls/hr IV ASDIR TERE Rx#:[id number] IVPB 500 Oral 400 Output: Urine 100 1500 500 Thornton 100 1500 500 Other: Voiding Method Indwelling Catheter Indwelling Catheter Bowel Movement No Height 5 ft 1 in Body Mass Index (BMI) 30.9 Weight 7 lb 10 oz Length 20 in sitting, NAD CBC, BMP 05/23/20 07:24 - No anesthesia complications
[2020-05-23] MEDS ORDERED: BISACODYL 10 MG SUPP.RECT RC PRN (11:10)
[2020-05-23] MEDS: OXYTOCIN 20 UNITS in 0.9% NS 20 UNIT/1,000 ML INFUS.BAG IV SCH (12:52)
[2020-05-23] MEDS: ELECTROLYTE-148 SOLN 1,000 ML IV SCH (12:53)
[2020-05-23] MEDS: ACETAMINOPHEN 325 MG TABLET (FP) PO PRN (13:11)
[2020-05-23] MEDS: SIMETHICONE 80 MG TAB.CHEW (FP) PO PRN ×2 (13:11→19:25)
[2020-05-23] MEDS: IBUPROFEN 600 MG TABLET (FP) PO PRN ×2 (13:11→19:27)
[2020-05-23 17:44] VITALS: TEMP 98
[2020-05-23] MEDS: oxyCODONE HCL 5 MG TABLET PO PRN (19:25)
[2020-05-24] MEDS: SIMETHICONE 80 MG TAB.CHEW (FP) PO PRN ×3 (00:34→11:39)
[2020-05-24] MEDS: oxyCODONE HCL 5 MG TABLET PO PRN ×2 (00:34→06:26)
[2020-05-24] MEDS: IBUPROFEN 600 MG TABLET (FP) PO PRN ×3 (00:35→11:39)
--- NOTE | 2020-05-24 06:51 | DS ---
Physical Exam-CASER UP Vital Signs: Vital Signs Temperature 98.0 F 05/23/20 22:00 Pulse Rate 83 05/23/20 22:00 Respiratory Rate 18 05/23/20 22:00 Blood Pressure 96/51 L 05/23/20 22:00 O2 Sat by Pulse Oximetry (%) 98 05/22/20 22:00 Constitutional: Yes: Well Nourished, Other (c/o pain 5/10 before meds) Eyes: Yes: WNL HENT: Yes: WNL Neck: Yes: WNL Cardiovascular: Yes: WNL Respiratory: Yes: WNL Gastrointestinal: Yes: WNL, Normal Bowel Sounds, Soft, Other (bm not done. declined suppository. tolerating diet well). No: Distention Renal/: Yes: WNL, Other (voiding without difficulty) External Genitalia: Yes: Normal ....Post : Yes: Uterus firm (below umblicus), Uterus non-tender, Moderate lochia rubra Breast(s): Yes: WNL (pumping . breast not engorged) Musculoskeletal: Yes: WNL Extremities: Yes: WNL. No: Calf Tenderness Edema: LLE: 1+, RLE: 1+ Integumentary: Yes: WNL, Tattoos Wound/Incision: Yes: Christopher Intact, Open to air. 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 she will rtc within 1 wk for christopher removal Discharge Summary Problems reviewed: Yes Reason For Visit: C SECTION Current Active Problems 39 weeks gestation of (Acute) Previous section (Acute) Condition: Stable - Instructions Diet, Activity, Other Instructions: Return to regular diet as tolerated. Follow up with MD one week post op. Call MD with any questions or concerns RTc 1 week for christopher removal Referrals: Valentin Gooden MD [Staff Physician] - Disposition: HOME - Home Medications Comprehensive Discharge Medication List: Ambulatory Orders Acetaminophen [Tylenol] 650 mg PO Q6H PRN #30 capsule MDD 5 05/22/20 Ferrous Sulfate [Feosol] 325 mg PO DAILY #30 tablet 05/22/20 Ibuprofen 600 mg PO Q6H PRN #30 tablet 05/22/20 Miscellaneous Medical Supply [Breast Pump, Electronic] 1 each NR ASDIR #1 unit 05/22/20 Oxycodone HCl 5 mg PO Q6H PRN #12 capsule MDD 5 05/22/20
[2020-05-24] MEDS: ACETAMINOPHEN 325 MG TABLET (FP) PO PRN (11:39)
[2020-05-24 13:16] VITALS: BP 101/56; PULSE 91
--- NOTE | 2020-05-24 14:38 | PATH ---
Surgical Pathology Report Patient Name: NABEEL CANTU Med. Rec. 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 TRIVASCULAR CORD. MEMBRANES WITH NO DIAGNOSTIC ABNORMALITIES. Electronically Signed Tali Zamarripa M.D. Gross Description The specimen is received fresh labeled placenta and is a 452 gram, 20.5 x 15.0 x 2.7 cm. placenta with attached membranes and umbilical cord. The attached membranes are damon, translucent with focal opacities and insert marginally. The umbilical cord measures 26 cm. in length and averages 1.1 cm. in diameter. The cord inserts eccentrically, 3 cm. to the nearest margin. No true knots or strictures are identified. Cut surface of the umbilical cord reveals 3 vessels. The surface is hernandez-blue with minimal fibrin deposition and appropriate caliber vessels. The maternal surface is red-brown with focal defects. Sectioning reveals red-brown, spongy parenchyma. No lesions are identified. Material Specialist sections are submitted in three cassettes as follows: 1- membrane rolls and umbilical cord; 2-3- full thickness sections of placenta. /05/23/2020 saudi/05/23/2020
== END 2020-05-24 14:00 | disposition home or self-care (01) | DRG 540 ==
LOC: JLDR 08:05 → J3W 15:35
PROVIDERS: ADMIT Student in an Organized Health Care Education/Training Program; ATTEND Student in an Organized Health Care Education/Training Program
PROC: 10D00Z1 Extraction of Products of Conception, Low, Open Approach (ICD-10-PCS; principal; 2020-05-22)
DX: O34.219 Maternal care for unspecified type scar from previous cesarean delivery (principal); Z3A.39 39 weeks gestation of pregnancy; Z37.0 Single live birth
CPT/HCPCS: 36415; 85025; 87081; 87389; 88307-TC

== ENCOUNTER 2020-05-28 13:51 | Emergency (ER) | payer OTHER ==
[2020-05-28 14:15] VITALS: BP 112/61; PULSE 62; TEMP 97; BMI 29.5
--- NOTE | 2020-05-28 15:11 | PDOC ---
History of Present Illness - General History Source: Patient Exam Limitations: No Limitations - History of Present Illness Initial Comments: 05/28/20 15:10 Patient is a 24 year old female with no pmhx c/o "I need my christopher remove" and swelling to b/l ankles. Patient is status post on 05/22/2020, and has had some ankle swelling which started 2 days postop. States she has been elevating the legs but feels that they are getting tighter and now she is having pain with walking. She has been urinating well. Denies chest pain, shortness of breath. Patient also is here to have her christopher removed states that she has been calling the clinic but is unable to get an appointment and she was told to come to the emergency room to have her christopher removed. He denies fever, chills, dysuria. OBS: 2 [facility] PMHX: as above PSOCHX: neg etoh, neg drug, neg cig ALL: NKDA GENERAL/CONSTITUTIONAL: [No fever or chills. No weakness. No weight change.] HEAD, EYES, EARS, NOSE AND THROAT: [No change in vision. No ear pain or discharge. No sore throat.] CARDIOVASCULAR: [No chest pain or shortness of breath.] RESPIRATORY: [No cough, wheezing, or hemoptysis.] GASTROINTESTINAL: [No nausea, vomiting, diarrhea or constipation. No rectal b leeding.] GENITOURINARY: [No dysuria, frequency, or change in urination.] MUSCULOSKELETAL: [No joint or muscle swelling or pain. No neck or back pain.] SKIN AND BREASTS: [No rash or easy bruising.] NEUROLOGIC: [No headache, vertigo, loss of consciousness, or loss of sensation.] PSYCHIATRIC: [No depression or anxiety.] ENDOCRINE: [No increased thirst. No abnormal weight change.] HEMATOLOGIC/LYMPHATIC: [No anemia, easy bleeding, or history of blood clots.] ALLERGIC/IMMUNOLOGIC: [No hives or skin allergy. No latex allergy.] GENERAL: [The patient is awake, alert, and fully oriented, in no acute d istress.] HEAD: [Normal with no signs of trauma.] EYES: [Pupils equal, round and reactive to light, extraocular movements intact, sclera anicteric, conjunctiva clear.] ENT: [Ears normal, nares patent, oropharynx clear without exudates. Moist mucous membranes.] NECK: [Normal range of motion, supple without lymphadenopathy, JVD, or masses.] LUNGS: [Breath sounds equal, clear to auscultation bilaterally. No wheezes, and no crackles.] HEART: [Regular rate and rhythm, normal S1 and S2 without murmur, rub.] ABDOMEN: [Soft, nontender, normoactive bowel sounds. No guarding, no rebound. No masses.] EXTREMITIES: [Normal range of motion, (+) nonpitting edema. No calf tenderness, no clubbing or cyanosis. No cords, erythema, or tenderness.] NEUROLOGICAL: [Cranial nerves II through XII grossly intact. Normal speech, normal gait.] PSYCH: [Normal mood, normal affect.] SKIN: [Warm, Dry, normal turgor, no rashes or lesions noted, scar healing well, christopher intact, no cellulitis, no discharge.] <Nohemy Jacobs - Last Filed: 05/28/20 17:53> <Brian Krishna - Last Filed: 05/28/20 21:11> - General Chief Complaint: Edema Stated Complaint: STAPLE REMOVAL Past History - Medical History Asthma: No Cancer: No Cardiac Disorders: No COPD: No Diabetes: No HTN: No Seizures: No Thyroid Disease: No - Surgical History Abdominal Surgery: No - Reproductive History Is Patient Now?: No (#): 3 Para: 1 Therapeutic (s) & number: Yes (elective) Spontaneous : 1 - Immunization History Td Vaccination: Yes Immunization Up to Date: Yes - Psycho-Social/Smoking History Smoking History: Never smoked Have you smoked in the past 12 months: No Number of Cigarettes Smoked Daily: 2 Information on smoking cessation initiated: No - Substance Abuse Hx (Audit-C & DAST Scrn) How often the patient has a drink containing alcohol: Never Score: In Men: 4 or > Positive; In Women: 3 or > Positive: 0 Screen Result (Pos requires Nsg. Audit-10AR): Negative In the last yr the pt used illegal drug/Rx for NonMed reason: No Score: Yes response is considered Positive: 0 Screen Result (Positive result requires Nsg. DAST-10): Negative <Nohemy Jacobs - Last Filed: 05/28/20 17:53> <Brian Krishna - Last Filed: 05/28/20 21:11> - Medical History Allergies/Adverse Reactions: Allergies Allergy/AdvReac Type Severity Reaction Status Date / Time No Known Allergies Allergy Verified 05/28/20 14:09 Home Medications: Ambulatory Orders Acetaminophen [Tylenol] 650 mg PO Q6H PRN #30 capsule MDD 5 05/22/20 Ferrous Sulfate [Feosol] 325 mg PO DAILY #30 tablet 05/22/20 Ibuprofen 600 mg PO Q6H PRN #30 tablet 05/22/20 Miscellaneous Medical Supply [Breast Pump, Electronic] 1 each NR ASDIR #1 unit 05/22/20 Oxycodone HCl 5 mg PO Q6H PRN #12 capsule MDD 5 05/22/20 Ibuprofen [Motrin -] 600 mg PO QID #28 tablet 05/28/20 *Physical Exam - Vital Signs Last Vital Signs Temp Pulse Resp BP Pulse Ox 97.0 F L 62 17 112/61 98 05/28/20 13:54 05/28/20 13:54 05/28/20 13:54 05/28/20 13:54 05/28/20 13:54 <Nohemy Jacobs - Last Filed: 05/28/20 17:53> - Vital Signs Last Vital Signs Temp Pulse Resp BP Pulse Ox 97.0 F L 62 17 112/61 98 05/28/20 13:54 05/28/20 13:54 05/28/20 13:54 05/28/20 13:54 05/28/20 13:54 <Brian Krishna - Last Filed: 05/28/20 21:11> ED Treatment Course - LABORATORY CBC & Chemistry Diagram: 05/28/20 15:00 05/28/20 15:00 - RADIOLOGY Radiology Studies Ordered: Category Date Time Status DUPLEX VASCUL US-2LEGS [US] Stat Ultrasound 05/28/20 15:06 Ordered <Nohemy Jacobs - Last Filed: 05/28/20 17:53> - LABORATORY CBC & Chemistry Diagram: 05/28/20 15:00 05/28/20 15:00 - ADDITIONAL ORDERS Additional order review: Laboratory Results 05/28/20 05/28/20 15:00 15:00 PT with INR 11.40 INR 0.97 PTT (Actin FS) 31.3 Sodium 143 Potassium 4.5 Chloride 111 H Carbon Dioxide 26 Anion Gap 7 L BUN 14.6 Creatinine 0.5 L Est GFR (CKD-EPI)AfAm 158.11 Est GFR (CKD-EPI)NonAf 136.42 Random Glucose 80 Calcium 9.0 Total Bilirubin 0.3 AST 34 ALT 59 Alkaline Phosphatase 138 H Total Protein 6.7 Albumin 2.8 L 05/28/20 15:00 RBC 3.48 L MCV 81.1 MCHC 31.9 L RDW 15.3 MPV 8.0 Neutrophils % 55.3 Lymphocytes % 33.5 D Monocytes % 9.1 Eosinophils % 1.4 D Basophils % 0.7 D <Brian Krishna - Last Filed: 05/28/20 21:11> Medical Decision Making - Medical Decision Making 05/28/20 15:10 Patient is a 24 year old female with no pmhx c/o "I need my christopher remove" and swelling to b/l ankles. Patient is status post on 05/22/2020, and has had some ankle swelling which started 2 days postop. States she has been elevating the legs but feels that they are getting tighter and now she is having pain with walking. She has been urinating well. Denies chest pain, shortness of breath. Patient also is here to have her christopher removed states that she has been calling the clinic but is unable to get an appointment and she was told to come to the emergency room to have her christopher removed. He denies fever, chills, dysuria. 1. Patient has nonpitting edema status post 7 days ago. Symptoms are consistent with peripheral edema however, will rule out DVTs. Doppler bilateral lower extremity. 2. Staple removal. Will consult OB. 05/28/20 15:47 Case was discussed with Dr. Toshia Chan who states that she should keep her christopher in for another week will call the clinic on Friday for an appointment to come in this week to have the christopher assessed for removal. States that she can also walk in to have this done. 05/28/20 15:56 Labs reviewed show no acute findings. Doppler of lower extremities and negative for DVTs. We will discharge patient with instructions to follow-up with her OBS for suture removal. I discussed the physical exam findings, ancillary test results and final diagnoses with the patient. I answered all of the patient's questions. The patient was satisfied with the care received and felt comfortable with the discharge plan and treatment plan. The Patient agrees to follow up with the primary care physician within 24-72 hours. <Nohemy Jacobs - Last Filed: 05/28/20 17:53> - Medical Decision Making 24 yo fem w/ bilat le edema after c section and wants christopher removed from c section here in ed DVT study negative bilat, DP/TP pulses intact and equal bilat Surgical site clean dry intact Will plan for outpt ob follow up for staple removal and reassurance Agree w/ management and care performed by OLIVIA Zelaya 05/28/20 21:10 <Brian Krishna - Last Filed: 05/28/20 21:11> Discharge - Discharge Information Problems reviewed: Yes <Nohemy Jacobs - Last Filed: 05/28/20 17:53> <Brian Krishna - Last Filed: 05/28/20 21:11> - Discharge Information Clinical Impression/Diagnosis: Peripheral edema, Visit for wound check Condition: Stable Disposition: HOME - Additional Discharge Information Prescriptions: Ibuprofen [Motrin -] 600 mg PO QID #28 tablet - Patient Discharge Instructions Patient Printed Discharge Instructions: DI for Peripheral Edema -- Bilateral Additional Instructions: I discussed the physical exam findings, ancillary test results and final diagnoses with the patient. I answered all of the patient's questions. The patient was satisfied with the care received and felt comfortable with the discharge plan and treatment plan. The Patient agrees to follow up with the primary care physician within 24-72 hours. You must follow-up with your OB on Friday call the office for an appointment to return for wound check and suture removal. Your Dopplers are negative for clots in the legs.
[2020-05-28 15:34] LABS: BASO % 0.7 % (0-2.0); EOS % 1.4 % (0-4.5); HEMATOCRIT 28.2 % (32.4-45.2); LYMPH % 33.5 % (8-40); MCH 25.9 pg (25.7-33.7); MCHC 31.9 g/dl (32.0-36.0); MEAN CELL VOLUME 81.1 fl (80-96); MONO % 9.1 % (3.8-10.2); NEUT % 55.3 % (42.8-82.8); PLATELET COUNT 302 K/MM3 (134-434); RBC 3.48 M/mm3 (3.60-5.2); RDW 15.3 % (11.6-15.6); WHITE BLOOD COUNT 6.5 K/mm3 (4.0-10.0)
[2020-05-28 15:41] LABS: INR 0.97 (0.83-1.09); PROTHROMBIN TIME (PATIENT) 11.4 SEC (9.7-13.0)
[2020-05-28 15:43] LABS: ACTIVATED PTT 31.3 SECONDS (25.2-36.5)
[2020-05-28 15:49] LABS: ALBUMIN 2.8 g/dl (3.4-5.0); BILIRUBIN,TOTAL 0.3 mg/dL (0.2-1); BLOOD UREA NITROGEN 14.6 mg/dL (7-18); CREATININE 0.5 mg/dL (0.55-1.3); POTASSIUM 4.5 mmol/L (3.5-5.1); TOT PROT 6.7 g/dl (6.4-8.2)
== END 2020-05-28 16:28 | disposition home or self-care (01) ==
LOC: JER 13:51
DX: Z48.00 Encounter for change or removal of nonsurgical wound dressing (principal)
CPT/HCPCS: 36415; 80053; 85025; 85610; 85730; 93970-TC; 99281-25

== ENCOUNTER 2020-09-17 18:20 | Emergency (ER) | payer OTHER ==
[2020-09-17 18:42] VITALS: BP 111/74; PULSE 89; TEMP 98.6; BMI 29.0
== END 2020-09-17 18:42 | disposition home or self-care (01) ==
LOC: FER 18:20
DX: S00.33XA Contusion of nose, initial encounter (principal)
CPT/HCPCS: 99283-25

== ENCOUNTER 2021-04-08 08:17 | Emergency (ER) | payer OTHER ==
[2021-04-08 08:40] VITALS: BP 117/73; PULSE 77; TEMP 97.6; BMI 30.4
== END 2021-04-08 09:32 | disposition home or self-care (01) ==
LOC: JER 08:17
DX: R21 Rash and other nonspecific skin eruption (principal)
CPT/HCPCS: 99283-25

== ENCOUNTER 2021-07-14 15:29 | Emergency (ER) | payer OTHER ==
[2021-07-14 15:37] VITALS: BP 100/65; PULSE 84; TEMP 98.3; BMI 29.8
[2021-07-14] MEDS ORDERED: IBUPROFEN 400 MG TABLET (FP) PO ONE ×2 (16:24→16:31)
== END 2021-07-14 18:37 | disposition home or self-care (01) ==
LOC: JER 15:29 → JERFT 15:29
DX: S83.91XA Sprain of unspecified site of right knee, initial encounter (principal); S93.401A Sprain of unspecified ligament of right ankle, initial encounter; W01.0XXA Fall on same level from slipping, tripping and stumbling without subsequent striking against object, initial encounter; Y92.9 Unspecified place or not applicable
CPT/HCPCS: 73562-TC-RT-FY; 73610-TC-RT-FY; 73630-TC-RT-FY; 99284-25

== ENCOUNTER 2022-12-13 14:20 | Emergency (ER) | payer OTHER ==
[2022-12-13 14:49] VITALS: BP 102/58; PULSE 81; RESP 16; TEMP 98.1; BMI 31.1
== END 2022-12-13 16:00 | disposition home or self-care (01) ==
LOC: FER 14:20
DX: S13.4XXA Sprain of ligaments of cervical spine, initial encounter (principal); V49.9XXA Car occupant (driver) (passenger) injured in unspecified traffic accident, initial encounter
CPT/HCPCS: 99282-25

== ENCOUNTER 2023-10-25 12:17 | Emergency (ER) | payer OTHER ==
[2023-10-25 12:27] VITALS: BP 104/69; PULSE 97; RESP 20; TEMP 98; BMI 29.9
[2023-10-25 14:16] LABS: BASO % 0.4 % (0-2.0); EOS % 0.8 % (0-4.5); HEMATOCRIT 42.1 % (32.4-45.2); HEMOGLOBIN 14.5 GM/dL (10.7-15.3); LYMPH % 28.5 % (8-40); MCH 31.2 pg (25.7-33.7); MCHC 34.5 g/dl (32.0-36.0); MEAN CELL VOLUME 90.5 fl (80-96); MEAN PLT VOLUME 8.3 fl (7.5-11.1); MONO % 8.8 % (3.8-10.2); NEUT % 61.5 % (42.8-82.8); PLATELET COUNT 307 10^3/uL (134-434); RBC 4.65 M/mm3 (3.60-5.2); RDW 13.4 % (11.6-15.6); WHITE BLOOD COUNT 8.3 K/mm3 (4.0-10.0)
[2023-10-25 14:20] LABS: EPI CELLS 20 /uL (0-25.1); HYALINE CASTS 2 /uL (0-3.1); URINE APPEARANCE CLEAR; URINE BACTERIA 156 /uL (0-1359); URINE BILIRUBIN NEGATIVE (NEGATIVE); URINE COLOR DK YELLOW; URINE GLUCOSE (UA) NEGATIVE (NEGATIVE); URINE KETONE NEGATIVE (NEGATIVE); URINE LEUK ESTERASE NEGATIVE (NEGATIVE); URINE NITRITE NEGATIVE (NEGATIVE); URINE PROTEIN TRACE (NEGATIVE); URINE RBC 37 /uL (0-23.9); URINE WBC 16 /uL (0-25.8)
[2023-10-25 14:22] LABS: HCG,QUALITATIVE URINE Positive
[2023-10-25 14:35] LABS: POTASSIUM 3.9 mmol/L (3.5-5.1)
[2023-10-25 14:38] LABS: ALBUMIN 3.7 g/dl (3.4-5.0); BLOOD UREA NITROGEN 5.1 mg/dL (7-18); CALCIUM 9.2 mg/dL (8.5-10.1)
[2023-10-25 14:41] LABS: CREATININE 0.7 mg/dL (0.55-1.3)
[2023-10-25 14:42] LABS: BILIRUBIN,TOTAL 0.5 mg/dL (0.2-1); TOT PROT 7.1 g/dl (6.4-8.2)
== END 2023-10-25 16:04 | disposition home or self-care (01) ==
LOC: JER 12:17
DX: O02.81 Inappropriate change in quantitative human chorionic gonadotropin (hCG) in early pregnancy (principal); Z3A.01 Less than 8 weeks gestation of pregnancy; O20.9 Hemorrhage in early pregnancy, unspecified
CPT/HCPCS: 36415; 80053; 81003; 84702; 84703; 85025; 86850; 86900; 86901; 87086; 99283-25

== ENCOUNTER 2023-11-09 18:28 | Emergency (ER) | payer OTHER ==
[2023-11-09 18:32] VITALS: BP 113/77; PULSE 77; RESP 18; TEMP 98; BMI 29.0
[2023-11-09] MEDS ORDERED: LIDOCAINE HCL/PF 1% SDV 5ML VIAL ONE ×2 (20:06→20:08)
[2023-11-09] MEDS ORDERED: cefTRIAXone SODIUM 1 GM VIAL ONE (20:06)
[2023-11-09] MEDS ORDERED: metroNIDAZOLE 250 MG TABLET ONE (20:06)
[2023-11-09] MEDS ORDERED: DOXYCYCLINE HYCLATE 100 MG CAPSULE PO ONE (20:06)
[2023-11-09] MEDS: metroNIDAZOLE 250 MG TABLET PO ONE (20:16)
[2023-11-09] MEDS: DOXYCYCLINE HYCLATE 100 MG CAPSULE PO ONE (20:16)
[2023-11-09 21:36] LABS: HIV INTERPRETATION NEGATIVE (NEGATIVE)
== END 2023-11-09 20:43 | disposition home or self-care (01) ==
LOC: JERFT 18:28
DX: Z11.3 Encounter for screening for infections with a predominantly sexual mode of transmission (principal)
CPT/HCPCS: 36415; 86780; 87389; 87491; 87591; 99284-25